=== PATIENT | female | born 1975 | race African-American/Black ===

== ENCOUNTER 2016-08-03 16:30 | Emergency (ER) | payer BC ==
--- NOTE | 2016-08-03 16:45 | ER Document Report ---
ED Medical Screen (RME) - General Stated Complaint: CHEST PAIN Notes: 41 yo female c/o anterior chest tightness x 1 week. + cough. + fever. "left arm feels funny". + hx/o HTN, + smoker no DM. *Pt was treated for pneumonia last month. *BP elevated 170/126. has not taken meds today. taking OTC cold meds TRAVEL OUTSIDE OF THE [place] IN LAST 30 DAYS: No - Related Data Allergies/Adverse Reactions: No Known Allergies Allergy (Verified 08/03/16 16:41) Past Medical History - Past Medical History Cardiac Medical History: Reports: Hx Hypertension Pulmonary Medical History: Reports: Hx Bronchitis Renal/ Medical History: Reports: Hx Ovarian Cysts - Immunizations Hx Diphtheria, Pertussis, Tetanus Vaccination: Yes Physical Exam - Vital signs Vitals: Temp Resp BP Pulse Ox 98.7 F 24 H 170/126 H 97 08/03/16 16:44 08/03/16 16:44 08/03/16 16:44 08/03/16 16:44 Course - Vital Signs Vital signs: Temp Pulse Resp BP Pulse Ox 98.7 F 24 H 170/126 H 97 08/03/16 16:44 08/03/16 16:44 08/03/16 16:44 08/03/16 16:44
[2016-08-03 17:39] LABS: HEMATOCRIT 40.4 % (36.0-47.0); HEMOGLOBIN 12.9 g/dL (12.0-15.5); HGB HCT DIFFERENCE -1.7; MEAN CORPUSCULAR HEMOGLOBIN 29.4 pg (27.0-33.4); MEAN CORPUSCULAR HGB CONC 31.9 g/dL (32.0-36.0); MEAN CORPUSCULAR VOLUME 92 fl (80-97); RED BLOOD COUNT 4.38 10^6/uL (3.72-5.28); RED CELL DISTRIBUTION WIDTH 15.1 % (11.5-14.0); WHITE BLOOD COUNT 3.9 10^3/uL (4.0-10.5)
[2016-08-03 17:56] LABS: ALANINE AMINOTRANSFERASE 23 U/L (9-52); ALKALINE PHOSPHATASE 78 U/L (38-126); ANION GAP 8 (5-19); ASPARTATE AMINO TRANSFERASE 19 U/L (14-36); BILIRUBIN,TOTAL 0.4 mg/dL (0.2-1.3); BLOOD UREA NITROGEN 8 mg/dL (7-20); CALCIUM 9.1 mg/dL (8.4-10.2); CARBON DIOXIDE 29 mmol/L (22-30); CHLORIDE 105 mmol/L (98-107); CREATINE KINASE 135 U/L (30-135); CREATININE RESULT 1.06 mg/dL (0.52-1.25); GLUCOSE 100 mg/dL (75-110); POTASSIUM 4.5 mmol/L (3.6-5.0); SODIUM 141.6 mmol/L (137-145)
[2016-08-03 18:09] LABS: CREATINE KINASE MB < 0.22 ng/mL (<4.55); TROPONIN I < 0.012 ng/mL
[2016-08-03 18:12] LABS: BAND NEUTROPHILS % (MANUAL) 1 % (3-5); BASOPHILS % (MANUAL) 0 % (0-2); EOSINOPHILS % (MANUAL) 1 % (0-6); LYMPHOCYTES % (MANUAL) 44 % (13-45); TOTAL CELLS COUNTED 100
[2016-08-03 18:14] LABS: ANISOCYTOSIS SLIGHT; OVALOCYTES SLIGHT; POIKILOCYTOSIS SLIGHT; TARGET CELLS SLIGHT
[2016-08-03] MEDS ORDERED: ALBUTEROL SULFATE 0.083% NEB 2.5 MG/3 ML AMPUL NEB ONE (21:41)
[2016-08-03] MEDS ORDERED: GUAIFENESIN/D-METHORPHAN (200-20 MG) SYRUP 10 ML PO ONE (21:41)
[2016-08-03] MEDS ORDERED: HYDRALAZINE HCL 25 MG TABLET PO ONE (21:41)
[2016-08-03] MEDS ORDERED: CYCLOBENZAPRINE HCL 10 MG TABLET PO ONE (21:41)
--- NOTE | 2016-08-03 21:43 | ER Document Report ---
ED General - General Chief Complaint: Chest Pain > 30 Stated Complaint: CHEST PAIN Mode of Arrival: Ambulatory Information source: Patient Notes: Patient is a 41-year-old female who presents to the ER today for 5 days of cough that is worsening with shortness of breath, wheezing, chest pain, ear pain bilaterally, sinus pressure. Patient states that the chest pain is worse after coughing. She also has a history of hypertension and has not taken her blood pressure medication today. She is a smoker but denies any history of COPD or asthma. Patient was diagnosed with pneumonia on June 27 and states that she did finish all of her antibiotics and did get better from that. She states that multiple people have been diagnosed with pneumonia at work here lately. TRAVEL OUTSIDE OF THE [place] IN LAST 30 DAYS: No - Related Data Allergies/Adverse Reactions: No Known Allergies Allergy (Verified 08/03/16 16:41) Past Medical History - General Information source: Patient - Social History Smoking Status: Current Every Day Smoker Chew tobacco use (# tins/day): No Frequency of alcohol use: None Drug Abuse: None Family History: Arthritis, DM, Hyperlipidemia, Hypertension, Malignancy Patient has suicidal ideation: No Patient has homicidal ideation: No - Past Medical History Cardiac Medical History: Reports: Hx Hypertension Pulmonary Medical History: Reports: Hx Bronchitis Renal/ Medical History: Reports: Hx Ovarian Cysts. Denies: Hx Peritoneal Dialysis - Immunizations Hx Diphtheria, Pertussis, Tetanus Vaccination: Yes Review of Systems - Review of Systems Constitutional: No symptoms reported EENT: See HPI Cardiovascular: No symptoms reported Respiratory: See HPI Gastrointestinal: No symptoms reported Genitourinary: No symptoms reported Female Genitourinary: No symptoms reported Musculoskeletal: See HPI Skin: No symptoms reported Hematologic/Lymphatic: No symptoms reported Neurological/Psychological: No symptoms reported Physical Exam - Vital signs Vitals: Temp Resp BP Pulse Ox 98.7 F 24 H 170/126 H 97 08/03/16 16:44 08/03/16 16:44 08/03/16 16:44 08/03/16 16:44 - Notes Notes: PHYSICAL EXAMINATION: GENERAL: Mildly ill-appearing, but in no acute distress. HEAD: Atraumatic, normocephalic. EYES: Pupils equal round and reactive to light, extraocular movements intact, sclera anicteric, conjunctiva are normal. ENT: ear canals without erythema or foreign body, TMs pearly zurita with good bony landmarks, nares with mucoid discharge, oropharynx erythematous without enlarged tonsils without exudates. Moist mucous membranes. NECK: Normal range of motion, supple without lymphadenopathy LUNGS: CTAB and equal. No wheezes rales or rhonchi. HEART/CHEST: tender to palpation over anterior lower ribs bilaterally, Regular rate and rhythm without murmurs ABDOMEN: Soft, no tenderness. No guarding, no rebound EXTREMITIES: Normal range of motion, no pitting edema. No cyanosis. NEUROLOGICAL: Cranial nerves grossly intact. Normal sensory/motor exams. PSYCH: Normal mood, normal affect. SKIN: Warm, Dry, normal turgor, no rashes or lesions noted Course - Re-evaluation Re-evalutation: 08/03/16 22:31 Chest x-ray is negative for any acute pathology. Patient feels better after cough medication, breathing treatment, muscle relaxer for her obvious intercostal rib pain from coughing. Patient will be sent home on antibiotic as she has had 5 days of worsening symptoms and recent history of pneumonia. - Vital Signs Vital signs: Temp Pulse Resp BP Pulse Ox 98.7 F 24 H 170/126 H 97 08/03/16 16:44 08/03/16 16:44 08/03/16 16:44 08/03/16 16:44 - Laboratory Result Diagrams: 08/03/16 17:10 08/03/16 17:10 Laboratory results interpreted by me: 08/03/16 08/03/16 17:10 17:10 WBC 3.9 L MCHC 31.9 L RDW 15.1 H Seg Neuts % (Manual) 37 L Band Neutrophils % 1 L Monocytes % (Manual) 15 H Abs Neuts (Manual) 1.5 L Est GFR (Non-Af Amer) 57 L Discharge - Discharge Clinical Impression: Rib pain, Bronchitis HTN (hypertension) Qualifiers: Hypertension type: essential hypertension Qualified Code(s): I10 - Essential ( primary) hypertension Sinusitis Qualifiers: Sinusitis location: unspecified location Chronicity: acute Recurrence: non- recurrent Qualified Code(s): J01.90 - Acute sinusitis, unspecified Condition: Stable Disposition: HOME, SELF-CARE Instructions: Chest Wall Pain ([facility]) Additional Instructions: Return immediately for any new or worsening symptoms. Follow up with primary care provider, call tomorrow to make followup appointment. Prescriptions: Hydrocodone Bit/Homatropine [Hycodan Syrup 5-1.5 mg/5 ml Ud Cup] 5 ml PO Q4HP PRN #120 ml PRN Reason: Azithromycin [Zithromax 250 mg Tablet] 250 mg PO ASDIR PRN #6 tablet PRN Reason: Fluticasone Propionate [Flonase Nasal [place] 50 Mcg/[place] 16 gm] 2 sprays NASL Q12 #1 inhaler Forms: Elevated Blood Pressure, Smoking Cessation Education, Return to Work
[2016-08-03] MEDS ORDERED: AZITHROMYCIN 250 MG TABLET PO ONE (22:36)
[2016-08-03 23:32] VITALS: BP 170/126
--- NOTE | 2016-08-05 12:46 | EKG REPORT ---
SEVERITY:- NORMAL ECG - SINUS RHYTHM : Confirmed by: Dahlia Thacker MD 05-Aug-2016 12:46:18
== END 2016-08-03 23:32 | disposition home or self-care (01) ==
LOC: ER 16:30
DX: J40 Bronchitis, not specified as acute or chronic (principal); J01.90 Acute sinusitis, unspecified; R07.82 Intercostal pain; R05 Cough; R06.02 Shortness of breath; R06.2 Wheezing; H92.09 Otalgia, unspecified ear; J34.89 Other specified disorders of nose and nasal sinuses; I10 Essential (primary) hypertension; F17.200 Nicotine dependence, unspecified, uncomplicated; Z79.899 Other long term (current) drug therapy; Z87.01 Personal history of pneumonia (recurrent)
CPT/HCPCS: 93005; 94640; 99285; 36415; 82553; 82550; 85025; 80053; 84484; 71020; 93010; J3490

== ENCOUNTER 2016-09-06 15:06 | Emergency (ER) | payer BC ==
--- NOTE | 2016-09-06 15:15 | ER Document Report ---
ED Medical Screen (RME) - General Stated Complaint: LEFT ARM PAIN Time seen by provider: 15:13 Mode of Arrival: Ambulatory Information source: Patient Notes: Patient complains of left wrist pain for the last 4 days, pain radiating up the entire left arm. Denies recent injury, but states she broke the wrist about 8 years ago. Complains of pain and swelling to the left wrist area. I have greeted and performed a rapid initial assessment of this patient. A comprehensive ED assessment and evaluation of the patient, analysis of test results and completion of the medical decision making process will be conducted by additional ED providers. TRAVEL OUTSIDE OF THE [place] IN LAST 30 DAYS: No - Related Data Allergies/Adverse Reactions: No Known Allergies Allergy (Verified 09/06/16 15:11) Past Medical History - Past Medical History Cardiac Medical History: Reports: Hx Hypertension Pulmonary Medical History: Reports: Hx Bronchitis Renal/ Medical History: Reports: Hx Ovarian Cysts. Denies: Hx Peritoneal Dialysis - Immunizations Hx Diphtheria, Pertussis, Tetanus Vaccination: Yes Physical Exam - Vital signs Vitals: Temp Pulse Resp BP Pulse Ox 97.6 F 65 20 138/90 H 99 09/06/16 15:10 09/06/16 15:10 09/06/16 15:10 09/06/16 15:10 09/06/16 15:10 - Extremities Wrist: Tender, Other - mild edema to left wrist, pain with ROM and palpation.. No: Ecchymosis Course - Vital Signs Vital signs: Temp Pulse Resp BP Pulse Ox 97.6 F 65 20 138/90 H 99 09/06/16 15:10 09/06/16 15:10 09/06/16 15:10 09/06/16 15:10 09/06/16 15:10
--- NOTE | 2016-09-06 17:35 | ER Document Report ---
ED General - General Chief Complaint: Arm Pain Stated Complaint: LEFT ARM PAIN Mode of Arrival: Ambulatory Information source: Patient Notes: Patient is a 41-year-old -[place] female complaining of left thumb pain and swelling for the past 5 days. She denies any injury but states approximately week ago she was helping lift her mother off the floor who had fallen. She has previous history of fracture to the same wrist and is concerned for the same. 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 She has tried ibuprofen at home with no relief. She denies any numbness, tingling, bruising, warmth, redness or deformity to area. TRAVEL OUTSIDE OF THE [place] IN LAST 30 DAYS: No - Related Data Allergies/Adverse Reactions: No Known Allergies Allergy (Verified 09/06/16 15:11) Past Medical History - General Information source: Patient - Social History Smoking Status: Current Every Day Smoker Chew tobacco use (# tins/day): No Frequency of alcohol use: Occasional Drug Abuse: None Family History: Arthritis, DM, Hyperlipidemia, Hypertension, Malignancy Patient has suicidal ideation: No Patient has homicidal ideation: No - Past Medical History Cardiac Medical History: Reports: Hx Hypertension Pulmonary Medical History: Reports: Hx Bronchitis Renal/ Medical History: Reports: Hx Ovarian Cysts. Denies: Hx Peritoneal Dialysis - Immunizations Hx Diphtheria, Pertussis, Tetanus Vaccination: Yes Review of Systems - Review of Systems Constitutional: No symptoms reported EENT: No symptoms reported Cardiovascular: No symptoms reported Respiratory: No symptoms reported Gastrointestinal: No symptoms reported Genitourinary: No symptoms reported Female Genitourinary: No symptoms reported Musculoskeletal: See HPI Skin: No symptoms reported Hematologic/Lymphatic: No symptoms reported Neurological/Psychological: No symptoms reported Physical Exam - Vital signs Vitals: Temp Pulse Resp BP Pulse Ox 97.6 F 65 20 138/90 H 99 09/06/16 15:10 09/06/16 15:10 09/06/16 15:10 09/06/16 15:10 09/06/16 15:10 Interpretation: Normal, Hypertensive - Notes Notes: PHYSICAL EXAM: CONSTITUTIONAL: Alert and oriented, well-appearing and in no acute distress. Appears comfortable lying in exam bed. HENT: Normocephalic, atraumatic. Moist mucous membranes. EYES: Pupils equal round and reactive to light, EOM intact. Sclera anicteric, conjunctiva are normal. No entrapment. NECK: supple without lymphadenopathy. ROM intact. HEART: Regular rate and rhythm without murmurs. LUNGS: CTAB and equal. No wheezes, rales or rhonchi. EXTREMITIES: left thumb/wrist - tender to palpation along radial styloid process of left wrist with associated localized edema to area. Pain worse with active and passive ROM. Positive Finklestein maneuver. Neurovascular intact. No pitting edema. No cyanosis. Cap Refill <3 seconds. NEURO: Cranial nerves grossly intact. Normal sensory/motor exams. PSYCH: Normal mood, normal affect. SKIN: Warm and dry. Normal turgor. No rashes or lesions noted. Course - Re-evaluation Re-evalutation: 09/06/16 17:34 Patient seen and examined. Positive Leo maneuver to left wrist/thumb. No evidence of compartment syndrome or deformity. X-ray reviewed and negative for acute bony abnormality. Discussed results with patient. Applied thumb spica splint and give script for anti-inflammatories/narcotic pain medication. Discussed following up with orthopedics and wearing thumb spica splint until evaluated by orthopedic. Patient gave verbal agreement with plan. Discharged home in stable condition. - Vital Signs Vital signs: Temp Pulse Resp BP Pulse Ox 97.6 F 65 20 138/90 H 99 09/06/16 15:10 09/06/16 15:10 09/06/16 15:10 09/06/16 15:10 09/06/16 15:10 - Diagnostic Test Radiology reviewed: Image reviewed, Reports reviewed Radiology results interpreted by me: 09/06/16 17:36 xray negative for acute bony abnormality. Procedures - Immobilization Left Wrist Pre-Proc Neuro Vasc Exam: Normal Immobilizer type: Thumb spica Performed by: PCT Post-Proc Neuro Vasc Exam: Normal Alignment checked and good: Yes Discharge - Discharge Clinical Impression: De Quervain's disease (tenosynovitis) Condition: Stable Disposition: HOME, SELF-CARE Additional Instructions: Tendonitis The pain you are having is due to tendonitis -- an inflammation around a muscle tendon. It's usually caused by overuse or repeated minor injuries ( strains) of the tendon. Tendonitis can take two to four weeks to heal. In fact, you may actually worsen for a few days despite treatment. Tendonitis is usually treated with rest, local heat, and antiinflammatory medication. Sometimes cold packs are recommended if the tendonitis has just started. If the pain is severe or prolonged, cortisone injections may be required. Call the doctor if pain or swelling become severe, if new discoloration or redness appears, or if numbness is noted. Splint Precautions A splint has been placed. This will protect the area while healing begins. Your problem does NOT normally require a cast. It MUST, however, be held still! Keep the splint on ALL THE TIME until instructed to remove it by the doctor. As you begin to use the area, be careful. You shouldn't do anything which causes discomfort -- you may disturb the injury even with the splint in place. After the initial period of rest and elevation, if splint does not prevent pain when you move, come back. You may require placement of a different splint , or a cast. If there is unexpected severe pain, or numbness, discoloration, or swelling beyond the splint, you should return at once. If you feel that the splint has broken or become loose, come back. Oral Narcotic Medication You have been given a prescription for pain control. This medication is a narcotic. It's best taken with food, as nausea can result if taken on an empty stomach. Don't operate machinery or drive within six hours of taking this medication. Do not combine this medicine with alcohol, or with any medication which can cause sedation (such as cold tablets or sleeping pills) unless you get permission from the physician. Narcotics tend to cause constipation. If possible, drink plenty of fluids and eat a diet high in fiber and fruits. Anti-Inflammatory Medication You have received a prescription for an antiinflammatory agent. This is an excellent, safe drug for pain control. In addition, it has potent antiinflammatory effects which are beneficial, especially in the treatment of injuries, arthritis, or tendonitis. It's best to take this medicine with food. Persons with ulcer disease or allergy to aspirin should notify their physician of this before taking this drug. Take the medication exactly as prescribed. Don't take additional doses unless instructed to do so by your doctor. If you develop wheezing, shortness of breath, hives, faintness, stomach pain, vomiting, or dark black stools, return for re-evaluation at once. Follow-Up Care Although no definite follow-up visit has been scheduled for you, you should return if there is unexpected worsening or a significant change in your symptoms. Prescriptions: Tramadol HCl [Ultram] 50 mg PO Q8HP PRN #10 tablet PRN Reason: Meloxicam [Mobic 15 mg Tablet] 15 mg PO DAILY #30 tablet Forms: Elevated Blood Pressure, Return to Work Referrals: CASPER LINDSEY MD [ACTIVE STAFF] - Follow up in 1 week (Call to schedule follow-up appointment)
[2016-09-06] MEDS ORDERED: TRAMADOL HCL 50 MG TABLET PO ONE (17:36)
[2016-09-06 18:03] VITALS: BP 134/76
== END 2016-09-06 18:05 | disposition home or self-care (01) ==
LOC: ER 15:06
PROC: 2W3DX1Z Immobilization of Left Lower Arm using Splint (ICD-10-PCS; principal; 2016-09-06)
DX: M65.4 Radial styloid tenosynovitis [de Quervain] (principal); F17.200 Nicotine dependence, unspecified, uncomplicated; I10 Essential (primary) hypertension; Z87.81 Personal history of (healed) traumatic fracture
CPT/HCPCS: 99283

== ENCOUNTER 2016-10-11 12:58 | Emergency (ER) | payer BC ==
--- NOTE | 2016-10-11 13:10 | ER Document Report ---
ED Medical Screen (RME) - General Mode of Arrival: Ambulatory Information source: Patient TRAVEL OUTSIDE OF THE [place] IN LAST 30 DAYS: No - HPI Patient complains to provider of: Headache and hypertension Onset: Other - see notes above Associated Symptoms: Other - see notes above <JYOTHI WEATHERS - Last Filed: 10/11/16 13:16> <NURA TOBAR - Last Filed: 10/11/16 15:59> - General Chief Complaint: High Blood Pressure Stated Complaint: HEADACHE Notes: 41 year old female with history of hypertension (medicated with Lisinopril) presents to the ED after being told by [facility] to come to the ED after having a high blood pressure reading earlier this afternoon. Patient states that she originally went to [facility] for a headache that she has been having for the past 3 weeks. Patient denies a fever. Patient took Lisinopril earlier today. (JYOTHI WEATHERS) - Related Data Allergies/Adverse Reactions: No Known Allergies Allergy (Verified 10/11/16 13:01) Past Medical History - General Information source: Patient - Past Medical History Cardiac Medical History: Reports: Hx Hypertension Pulmonary Medical History: Reports: Hx Bronchitis Renal/ Medical History: Reports: Hx Ovarian Cysts. Denies: Hx Peritoneal Dialysis - Immunizations Hx Diphtheria, Pertussis, Tetanus Vaccination: Yes <JYOTHI WEATHERS - Last Filed: 10/11/16 13:16> Review of Systems - Review of Systems Constitutional: No symptoms reported EENT: No symptoms reported Cardiovascular: See HPI, Other - hypertension Respiratory: No symptoms reported Gastrointestinal: No symptoms reported Genitourinary: No symptoms reported Female Genitourinary: No symptoms reported Musculoskeletal: No symptoms reported Skin: No symptoms reported Hematologic/Lymphatic: No symptoms reported Neurological/Psychological: See HPI, Headaches -: Yes All other systems reviewed and negative <JYOTHI WEATHERS - Last Filed: 10/11/16 13:16> Physical Exam - Vital signs Interpretation: Hypertensive - General General appearance: Alert, Other - appears uncomfortable In distress: None - HEENT Nasal: Other - nasal congestion - Respiratory Respiratory status: No respiratory distress <JYOTHI WEATHERS - Last Filed: 10/11/16 13:16> <NURA TOBAR - Last Filed: 10/11/16 15:59> - Vital signs Vitals: Temp Pulse Resp BP Pulse Ox 99.5 F 93 20 182/114 H 98 10/11/16 13:05 10/11/16 13:05 10/11/16 13:05 10/11/16 13:05 10/11/16 13:05 Course <JYOTHI WEATHERS - Last Filed: 10/11/16 13:16> - Laboratory Result Diagrams: 10/11/16 13:50 10/11/16 13:50 <NURA TOBAR - Last Filed: 10/11/16 15:59> - Re-evaluation Re-evalutation: 10/11/16 15:59 I personally performed the services described in the documentation, reviewed and edited the documentation which was dictated to the scribe in my presence, and it accurately records my words and actions. (NURA TOBAR) - Vital Signs Vital signs: Temp Pulse Resp BP Pulse Ox 99.5 F 93 20 182/114 H 98 10/11/16 13:05 10/11/16 13:05 10/11/16 13:05 10/11/16 13:05 10/11/16 13:05 - Laboratory Laboratory results interpreted by me: 10/11/16 13:50 RDW 14.8 H Doctor's Discharge <JYOTHI WEATHERS - Last Filed: 10/11/16 13:16> <NURA TOBAR - Last Filed: 10/11/16 15:59> - Discharge Clinical Impression: Headache, Hypertension Condition: Stable Disposition: HOME, SELF-CARE Instructions: High Blood Pressure ([facility]) Additional Instructions: You must follow-up with your physician regarding your high blood pressure. You must take medications as prescribed Follow up with your physician tomorrow for further care or return to the ED IMMEDIATELY if symptoms worsen or new concerns occur Scribe Documentation - Scribe Written by Nany:: Nany Austin, 10/11/2016 1332 acting as scribe for :: Juan Daniel <JYOTHI WEATHERS - Last Filed: 10/11/16 13:16>
[2016-10-11] MEDS ORDERED: DIPHENHYDRAMINE HCL 50 MG/ML VIAL IV ONE (13:11)
[2016-10-11] MEDS ORDERED: PROCHLORPERAZINE EDISYLATE INJ 10 MG/2 ML VIAL IV ONE (13:11)
[2016-10-11] MEDS ORDERED: ONDANSETRON HCL INJ/PF 4 MG/2 ML SDV IV ONE (13:11)
[2016-10-11] MEDS ORDERED: LORAZEPAM INJ 2 MG/1 ML VIAL IV ONE (13:47)
--- NOTE | 2016-10-11 13:50 | ER Document Report ---
ED General - General Chief Complaint: High Blood Pressure Stated Complaint: HEADACHE Mode of Arrival: Ambulatory Information source: Patient Notes: 41-year-old female history of hypertension who is on lisinopril and another blood pressure medication that she is yet to start presents with complaints of high blood pressure and headache. Patient was noted to have a blood pressure of 210/120 prior to arrival. Patient admits headache with mild nausea denies any fevers or chills denies any neurological deficits. Patient also notes that she is extremely anxious and tearful because a friend had . Patient admits she has not been taking her blood pressure medication as prescribed. She didn't take her lisinopril earlier today. TRAVEL OUTSIDE OF THE [place] IN LAST 30 DAYS: No - HPI Onset: This morning Onset/Duration: Gradual Quality of pain: Achy Severity: Mild Pain Level: 2 Associated symptoms: Headache Exacerbated by: Denies Relieved by: Denies Similar symptoms previously: Yes Recently seen / treated by doctor: Yes - Related Data Allergies/Adverse Reactions: No Known Allergies Allergy (Verified 10/11/16 13:01) Past Medical History - General Information source: Patient - Social History Smoking Status: Never Smoker Cigarette use (# per day): No Chew tobacco use (# tins/day): No Smoking Education Provided: No Family History: Arthritis, DM, Hyperlipidemia, Hypertension, Malignancy Patient has suicidal ideation: No Patient has homicidal ideation: No - Past Medical History Cardiac Medical History: Reports: Hx Hypertension Pulmonary Medical History: Reports: Hx Bronchitis Renal/ Medical History: Reports: Hx Ovarian Cysts. Denies: Hx Peritoneal Dialysis - Immunizations Hx Diphtheria, Pertussis, Tetanus Vaccination: Yes Review of Systems - Review of Systems Notes: REVIEW OF SYSTEMS: CONSTITUTIONAL : Denies fever, chills, or sweats. Denies recent illness. EENT: Denies eye, ear, throat, or mouth pain or symptoms. Denies nasal or sinus congestion or discharge. Denies throat, tongue, or mouth swelling or difficulty swallowing. CARDIOVASCULAR: Denies chest pain. Denies palpitations or racing or irregular heart beat. Denies ankle edema. RESPIRATORY: Denies cough, cold, or chest congestion. Denies shortness of breath, difficulty breathing, or wheezing. GASTROINTESTINAL: Denies abdominal pain or distention. Denies nausea, vomiting , or diarrhea. Denies blood in vomitus, stools, or per rectum. Denies black, tarry stools. Denies constipation. GENITOURINARY: Denies difficulty urinating, painful urination, burning, frequency, blood in urine, or discharge. FEMALE GENITOURINARY: Denies vaginal bleeding, heavy or abnormal periods, irregular periods. Denies vaginal discharge or odor. MUSCULOSKELETAL: Denies back or neck pain or stiffness. Denies joint pain or swelling. SKIN: Denies rash, lesions or sores. HEMATOLOGIC : Denies easy bruising or bleeding. LYMPHATIC: Denies swollen, enlarged glands. NEUROLOGICAL: Admits to headache PSYCHIATRIC: Admits to anxiety stress ALL OTHER SYSTEMS REVIEWED AND NEGATIVE. Dictation was performed using [employer] voice recognition software PHYSICAL EXAMINATION: GENERAL: Well-appearing, well-nourished and in no acute distress. HEAD: Atraumatic, normocephalic. EYES: Pupils equal round and reactive to light, extraocular movements intact, conjunctiva are normal. ENT: Nares patent, oropharynx clear without exudates. Moist mucous membranes. NECK: Normal range of motion, supple without lymphadenopathy LUNGS: Breath sounds clear to auscultation bilaterally and equal. No wheezes rales or rhonchi. HEART: Regular rate and rhythm without murmurs ABDOMEN: Soft, nontender, nondistended abdomen. No guarding, no rebound. No masses appreciated. Female : deferred Musculoskeletal: Normal range of motion, no pitting or edema. No cyanosis. NEUROLOGICAL: Cranial nerves grossly intact. Normal speech, normal gait. Normal sensory, motor exams PSYCH: Patient is tearful admits to mild depression SKIN: Warm, Dry, normal turgor, no rashes or lesions noted. Physical Exam - Vital signs Vitals: Temp Pulse Resp BP Pulse Ox 99.5 F 93 20 182/114 H 98 10/11/16 13:05 10/11/16 13:05 10/11/16 13:05 10/11/16 13:05 10/11/16 13:05 Course - Re-evaluation Re-evalutation: 10/11/16 13:49 Physical examination notes an obese 41-year-old female who does not take her blood pressure medication as prescribed. Patient was noted to be hypertensive on arrival but lower than initial presentation. She will be placed on monitor treated for her headache imaging is pending at this time 10/11/16 14:46 On reevaluation patient's blood pressure is 160/110, she is sleeping comfortably in no distress, I will rule out she states her headache has resolved. Lab work imaging otherwise negative I believe patient stable for discharge patient has been instructed that she must take her blood pressure medication as prescribed After performing a Medical Screening Examination, I estimate there is LOW risk for ACUTE GLAUCOMA, TEMPORAL ARTERITIS, MENINGITIS, INCRANIAL HEMORRHAGE, or ISCHEMIC STROKE thus I consider the discharge disposition reasonable. The patient and I have discussed the diagnosis and risks, and we agree with discharging home with close follow-up with the understanding that symptoms and presentations can change. We also discussed returning to the Emergency Department immediately if new or worsening symptoms occur. We have discussed the symptoms which are most concerning (e.g., changing or worsening symptoms, new numbness or weakness, vomiting, fever) that necessitate immediate return. - Vital Signs Vital signs: Temp Pulse Resp BP Pulse Ox 99.5 F 93 20 182/114 H 98 10/11/16 13:05 10/11/16 13:05 10/11/16 13:05 10/11/16 13:05 10/11/16 13:05 - Laboratory Result Diagrams: 10/11/16 13:50 10/11/16 13:50 Laboratory results interpreted by me: 10/11/16 13:50 RDW 14.8 H - Diagnostic Test Radiology reviewed: Image reviewed, Reports reviewed - EKG Interpretation by Nv EKG shows normal: Sinus rhythm, [place], Intervals, QRS Complexes Discharge - Discharge Clinical Impression: Headache Qualifiers: Headache type: unspecified Headache chronicity pattern: acute headache Intractability: not intractable Qualified Code(s): R51 - Headache Hypertension Qualifiers: Hypertension type: essential hypertension Qualified Code(s): I10 - Essential ( primary) hypertension Condition: Stable Disposition: HOME, SELF-CARE Instructions: High Blood Pressure ([facility]) Additional Instructions: You must follow-up with your physician regarding your high blood pressure. You must take medications as prescribed Follow up with your physician tomorrow for further care or return to the ED IMMEDIATELY if symptoms worsen or new concerns occur
[2016-10-11 14:17] LABS: ABSOLUTE LYMPHOCYTES (AUTO) 2.1 10^3/uL (0.5-4.7); ABSOLUTE MONOCYTES (AUTO) 0.6 10^3/uL (0.1-1.4); ABSOLUTE NEUT (AUTO) 3.4 10^3/uL (1.7-8.2); BASOPHILS % (AUTO) 0.7 % (0-2); EOSINOPHILS % (AUTO) 0.4 % (0-6); HEMATOCRIT 38.1 % (36.0-47.0); HEMOGLOBIN 12.8 g/dL (12.0-15.5); HGB HCT DIFFERENCE 0.3; LYMPHOCYTES % (AUTO) 33.8 % (13-45); MEAN CORPUSCULAR HGB CONC 33.6 g/dL (32.0-36.0); MEAN CORPUSCULAR VOLUME 89 fl (80-97); MONOCYTES % (AUTO) 9.2 % (3-13); RED BLOOD COUNT 4.28 10^6/uL (3.72-5.28); RED CELL DISTRIBUTION WIDTH 14.8 % (11.5-14.0); SEGMENTED NEUTROPHILS % (AUTO) 55.9 % (42-78); WHITE BLOOD COUNT 6.1 10^3/uL (4.0-10.5)
[2016-10-11 14:36] LABS: ALANINE AMINOTRANSFERASE 25 U/L (9-52); ALBUMIN 4.2 g/dL (3.5-5.0); ALKALINE PHOSPHATASE 74 U/L (38-126); ANION GAP 10 (5-19); ASPARTATE AMINO TRANSFERASE 20 U/L (14-36); BILIRUBIN,DIRECT 0.1 mg/dL (0.0-0.4); BILIRUBIN,TOTAL 0.4 mg/dL (0.2-1.3); BLOOD UREA NITROGEN 8 mg/dL (7-20); CALCIUM 9.4 mg/dL (8.4-10.2); CARBON DIOXIDE 25 mmol/L (22-30); CHLORIDE 106 mmol/L (98-107); CREATINE KINASE 123 U/L (30-135); CREATININE RESULT 0.89 mg/dL (0.52-1.25); GLUCOSE 82 mg/dL (75-110); POTASSIUM 4.3 mmol/L (3.6-5.0); SODIUM 141.2 mmol/L (137-145); TOTAL PROTEIN 7.3 g/dL (6.3-8.2)
[2016-10-11 17:08] VITALS: BP 162/110
--- NOTE | 2016-10-13 15:41 | EKG REPORT ---
SEVERITY:- NORMAL ECG - SINUS RHYTHM : Confirmed by: Dahlia Thacker MD 13-Oct-2016 15:41:14
== END 2016-10-11 16:40 | disposition home or self-care (01) ==
LOC: ER 12:58
DX: R51 Headache (principal); I10 Essential (primary) hypertension; R11.0 Nausea; F41.9 Anxiety disorder, unspecified
CPT/HCPCS: 93005; 99284; 96374; 96375; 36415; 82553; 82550; 85025; 85610; 80053; 70450; 93010; J1200; J2060; J0780; J2405

== ENCOUNTER 2017-06-16 03:40 | Emergency (ER) | payer BC ==
[2017-06-16] MEDS ORDERED: KETOROLAC TROMETHAMINE 60 MG/2 ML SDV IM ONE (04:24)
[2017-06-16] MEDS ORDERED: BUPIVACAINE HCL 0.5 % INJ/PF 30 ML SDV INJ ONE (04:54)
--- NOTE | 2017-06-16 05:04 | RADIOLOGY REPORT (SQ) ---
EXAM DESCRIPTION: WRIST LEFT 3 VIEWS CLINICAL HISTORY: 41 years, Female, pain COMPARISON: 09/06/2016 NUMBER OF VIEWS: Three TECHNIQUE: Frontal lateral oblique LIMITATIONS: None. FINDINGS: Comminuted, impacted intra-articular fracture of the distal left radius with up to 0.8 cm posterior displacement. Fracture of the ulnar styloid base. 0.5 cm distraction of the scapholunate joint space consistent with scapholunate ligamentous injury. No evidence of healing. New compared with prior exam from August 2016. IMPRESSION: Comminuted impacted fracture of the left distal radius and ulnar styloid base. Scapholunate separation. 2010 [employer] All Rights Reserved
--- NOTE | 2017-06-16 05:05 | RADIOLOGY REPORT (SQ) ---
EXAM DESCRIPTION: HIP LEFT AP/LATERAL CLINICAL HISTORY: 41 years, Female, pain COMPARISON: None. NUMBER OF VIEWS: Two. TECHNIQUE: Frontal and frog lateral. LIMITATIONS: None. FINDINGS: Bones, joints, and soft tissues appear intact. IMPRESSION: Intact left hip. 2011 [employer]- All Rights Reserved
--- NOTE | 2017-06-16 05:07 | RADIOLOGY REPORT (SQ) ---
EXAM DESCRIPTION: TIBIA FIBULA LEFT CLINICAL HISTORY: 41 years, Female, pain COMPARISON: None. NUMBER OF VIEWS: Two, four images. TECHNIQUE: Frontal and lateral. LIMITATIONS: None. FINDINGS: Bones, joints, and soft tissues appear intact. IMPRESSION: Intact left lower leg. 2011 [employer]- All Rights Reserved
--- NOTE | 2017-06-16 05:54 | ER Document Report ---
ED General - General Chief Complaint: Fall Stated Complaint: FALL,ARM/LEG PAIN Time Seen by Provider: 06/16/17 04:17 TRAVEL OUTSIDE OF THE U.S. IN LAST 30 DAYS: No - HPI Patient complains to provider of: Fall left leg left arm injury Notes: Patient coming in for evaluation of the left leg left arm injury. Patient states that she was drinking when she fell landing on her side. Patient states pain in the left wrist. Patient also states pain and her left knee. Denies any loss of consciousness. Patient states that she was drinking alcohol unknown when the last time she had anything to drink. Patient does smell of alcohol patient looks to be in no obvious distress. Patient does have an obvious deformity to the left wrist - Related Data Allergies/Adverse Reactions: No Known Allergies Allergy (Verified 06/16/17 03:45) Past Medical History - Social History Smoking Status: Former Smoker Frequency of alcohol use: Social Family History: Arthritis, DM, Hyperlipidemia, Hypertension, Malignancy Patient has suicidal ideation: No Patient has homicidal ideation: No - Past Medical History Cardiac Medical History: Reports: Hx Hypertension Pulmonary Medical History: Reports: Hx Bronchitis Renal/ Medical History: Reports: Hx Ovarian Cysts. Denies: Hx Peritoneal Dialysis - Immunizations Hx Diphtheria, Pertussis, Tetanus Vaccination: Yes Review of Systems - Review of Systems Constitutional: No symptoms reported EENT: No symptoms reported Cardiovascular: No symptoms reported Respiratory: No symptoms reported Gastrointestinal: No symptoms reported Genitourinary: No symptoms reported Female Genitourinary: No symptoms reported Musculoskeletal: Other - Left arm left knee pain Skin: No symptoms reported Hematologic/Lymphatic: No symptoms reported Neurological/Psychological: No symptoms reported Physical Exam - Vital signs Vitals: Temp Pulse Resp BP Pulse Ox 97.7 F 77 18 107/85 99 06/16/17 03:45 06/16/17 03:45 06/16/17 03:45 06/16/17 03:45 06/16/17 03:45 Interpretation: Normal - General General appearance: Appears well, Alert - HEENT Head: Normocephalic, Atraumatic Eyes: Normal Pupils: PERRL - Respiratory Respiratory status: No respiratory distress Chest status: Nontender Breath sounds: Normal Chest palpation: Normal - Cardiovascular Rhythm: Regular Heart sounds: Normal auscultation Murmur: No - Abdominal Inspection: Normal Distension: No distension Bowel sounds: Normal Tenderness: Nontender Organomegaly: No organomegaly - Back Back: Normal, Nontender - Extremities General upper extremity: Nontender, Normal color, Normal ROM, Normal temperature. No: Normal inspection - Swelling slight deformity to the left wrist. General lower extremity: Normal inspection, Nontender, Normal color, Normal ROM , Normal temperature, Normal weight bearing, Other - Left knee was examined patient is able to bend left knee up at 90. There is no laxity or pain listed on valgus varus anterior posterior drawer testing.. No: Ly's sign - Neurological Neuro grossly intact: Yes Cognition: Normal Orientation: AAOx4 [place] Coma Scale Eye Opening: Spontaneous [place] Coma Scale Verbal: Oriented [place] Coma Scale Motor: Obeys Commands [place]onna Coma Scale Total: 15 Speech: Normal Motor strength normal: LUE, RUE, LLE, RLE Sensory: Normal - Psychological Associated symptoms: Normal affect, Normal mood - Skin Skin Temperature: Warm Skin Moisture: Dry Skin Color: Normal Course - Re-evaluation Re-evalutation: 06/16/17 06:18 X-ray reveals a left wrist fracture. Patient was placed in a sugar tong splint. No other fracture seen on x-rays. Patient more likely has a knee sprain was placed in Allan bandage. Due to the patient smelling of alcohol and admitting to recent alcohol use no narcotics were given to the patient I did perform a hematoma block using 0.5 days Marcaine. The area was cleaned with ChloraPrep injected approximately 4 cc of Marcaine into left wrist. 06/16/17 06:19 Patient was given orthopedic follow-up information. - Vital Signs Vital signs: Temp Pulse Resp BP Pulse Ox 97.7 F 77 18 107/85 99 06/16/17 03:45 06/16/17 03:45 06/16/17 03:45 06/16/17 03:45 06/16/17 03:45 Procedures - Immobilization Left Wrist Immobilizer type: Sugar tong Performed by: PCT Post-Proc Neuro Vasc Exam: Normal Alignment checked and good: Yes Discharge - Discharge Clinical Impression: Wrist fracture, left Qualifiers: Encounter type: initial encounter Fracture type: closed Qualified Code(s): S62.102A - Fracture of unspecified carpal bone, left wrist, initial encounter for closed fracture Knee sprain Qualifiers: Encounter type: initial encounter Involved ligament of knee: unspecified ligament Laterality: left Qualified Code(s): S83.92XA - Sprain of unspecified site of left knee, initial encounter Condition: Good Disposition: HOME, SELF-CARE Instructions: Fractured Radius ([facility]), Ice & Elevation ([facility]), Suspected Internal Knee Injury ([facility]), Oral Narcotic Medication ([facility]), Sprained Knee ([facility]) Additional Instructions: Your x-ray shows she fractured her left wrist. Please leave the splint in place until you follow-up with orthopedic physician. I recommend calling the orthopedic office this morning to schedule a follow-up appointment. Please take the pain medication as prescribed do not drink any alcohol when taking the pain medication. He may also take Tylenol Motrin for pain. Your x-rays of your hip and of your lower leg did not show any signs of fracture. Your knee pain is more likely from a sprain. You may use the Allan wrap as needed for support. Ice and elevate your knee. Return to the ER for any worsening symptoms. Prescriptions: Hydrocodone Bit/Acetaminophen [Hydrocodon-Acetaminophen 5-325] 1 each PO Q6 #35 tablet Referrals: DENISE HOLDER MD [ACTIVE STAFF] - Follow up as needed (Call today for a follow- up appointment.)
[2017-06-16 06:35] VITALS: BP 148/89
== END 2017-06-16 06:30 | disposition home or self-care (01) ==
LOC: ER 03:40
PROC: 2W3DX1Z Immobilization of Left Lower Arm using Splint (ICD-10-PCS; principal; 2017-06-16)
DX: S62.102A Fracture of unspecified carpal bone, left wrist, initial encounter for closed fracture (principal); S83.92XA Sprain of unspecified site of left knee, initial encounter; W19.XXXA Unspecified fall, initial encounter; I10 Essential (primary) hypertension; Z87.891 Personal history of nicotine dependence
CPT/HCPCS: 99283; 73502; 73590; 73110; 29125; J1885

== ENCOUNTER 2017-06-20 14:00 | Day surgery (SDC) | payer BC ==
[~2017-06-20 14:00] MED LIST: DEXAMETHASONE SOD PHOSPHATE INJ 4 MG/1 ML VIAL ONE; ONDANSETRON HCL INJ/PF 4 MG/2 ML SDV ONE; PHENYLEPHRINE HCL INJ/PF 10 MG/1 ML SDV ONE; SUCCINYLCHOLINE CHLORIDE INJ 200 MG/10 ML VIAL ONE
[2017-06-20] MEDS ORDERED: CEFAZOLIN 2 GM/D5W RTU 2 GM/50 ML RTUPB IV PRN (14:32)
[2017-06-20 14:47] LABS: ABSOLUTE EOSINOPHILS # (AUTO) 0.1 10^3/uL (0.0-0.6); ABSOLUTE LYMPHOCYTES (AUTO) 1.9 10^3/uL (0.5-4.7); ABSOLUTE MONOCYTES (AUTO) 0.4 10^3/uL (0.1-1.4); ABSOLUTE NEUT (AUTO) 2.4 10^3/uL (1.7-8.2); BASOPHILS % (AUTO) 0.9 % (0-2); EOSINOPHILS % (AUTO) 1.7 % (0-6); HEMATOCRIT 39.2 % (36.0-47.0); HEMOGLOBIN 13.3 g/dL (12.0-15.5); HGB HCT DIFFERENCE 0.7; LYMPHOCYTES % (AUTO) 38.9 % (13-45); MEAN CORPUSCULAR HEMOGLOBIN 30.8 pg (27.0-33.4); MEAN CORPUSCULAR VOLUME 91 fl (80-97); MONOCYTES % (AUTO) 8.6 % (3-13); RED BLOOD COUNT 4.31 10^6/uL (3.72-5.28); RED CELL DISTRIBUTION WIDTH 14.7 % (11.5-14.0); SEGMENTED NEUTROPHILS % (AUTO) 49.9 % (42-78); WHITE BLOOD COUNT 4.8 10^3/uL (4.0-10.5)
[2017-06-20 14:56] LABS: APPEARANCE,URINE SLIGHTLY-CLOUDY; BILIRUBIN,URINE NEGATIVE (NEGATIVE); GLUCOSE, URINE NEGATIVE (NEGATIVE); KETONES,URINE NEGATIVE (NEGATIVE); LEUKOCYTE ESTERASE,URINE SMALL (NEGATIVE); NITRITE,URINE NEGATIVE (NEGATIVE); PROTEIN,URINE NEGATIVE (NEGATIVE); URINE SPECIFIC GRAVITY 1.026; UROBILINOGEN,URINE NEGATIVE mg/dL (<2.0)
[2017-06-20 15:18] LABS: ANION GAP 8 (5-19); BLOOD UREA NITROGEN 11 mg/dL (7-20); CALCIUM 9.5 mg/dL (8.4-10.2); CARBON DIOXIDE 26 mmol/L (22-30); CHLORIDE 104 mmol/L (98-107); CREATININE RESULT 0.85 mg/dL (0.52-1.25); GLUCOSE 96 mg/dL (75-110); POTASSIUM 4.5 mmol/L (3.6-5.0); SODIUM 138.1 mmol/L (137-145)
--- NOTE | 2017-06-20 15:26 | RADIOLOGY REPORT (SQ) ---
EXAM DESCRIPTION: CHEST SINGLE VIEW COMPLETED DATE/TIME: 06/20/2017 2:53 pm REASON FOR STUDY: PREOP COMPARISON: CT chest 06/27/2016 Two-view chest 08/03/2016 EXAM PARAMETERS: NUMBER OF VIEWS: One view. TECHNIQUE: Single frontal radiographic view of the chest acquired. RADIATION DOSE: NA LIMITATIONS: Obese patient FINDINGS: LUNGS AND PLEURA: No opacities, masses or pneumothorax. No pleural effusion. MEDIASTINUM AND HILAR STRUCTURES: No masses. Contour normal. HEART AND VASCULAR STRUCTURES: Heart normal in size. Normal vasculature. BONES: No acute findings. HARDWARE: None in the chest. OTHER: No other significant finding. IMPRESSION: NO ACUTE RADIOGRAPHIC FINDING IN THE CHEST. TECHNICAL DOCUMENTATION: JOB ID: [id number] [employer]- All Rights Reserved
[2017-06-20] MEDS ORDERED: FAMOTIDINE INJ/PF 20 MG/2 ML SDV IV ONE (15:58)
[2017-06-20] MEDS ORDERED: BUPIVACAINE HCL 0.5 % INJ/PF 30 ML SDV ONE (16:15)
[2017-06-20] MEDS ORDERED: FENTANYL CITRATE INJ/PF 100 MCG/2 ML AMPUL ONE ×2 (16:26→19:21)
[2017-06-20] MEDS ORDERED: HYDROMORPHONE HCL INJ/PF 2 MG/ML AMPULE ONE (16:26)
[2017-06-20] MEDS ORDERED: MIDAZOLAM 2 MG/2 ML INJ ONE (16:26)
[2017-06-20] MEDS ORDERED: ACETAMINOPHEN 100 ML IV ONE (16:27)
[2017-06-20] MEDS ORDERED: PROPOFOL INJ 200 MG/20 ML VIAL IV ONE ×2 (16:27→19:21)
[2017-06-20] MEDS ORDERED: DIPHENHYDRAMINE HCL 50 MG/ML VIAL IV PRN (18:36)
[2017-06-20] MEDS ORDERED: MEPERIDINE HCL/PF INJ 25 MG/1 ML DISP.SYRIN IV PRN (18:36)
[2017-06-20] MEDS ORDERED: MORPHINE SULFATE 10 MG/ML INJ IV PRN (18:36)
[2017-06-20] MEDS ORDERED: OXYCODONE-ACETAMINOPHEN 5-325 MG TABLET PO PRN ×3 (18:36→19:47)
[2017-06-20] MEDS ORDERED: FENTANYL CITRATE INJ/PF 100 MCG/2 ML AMPUL IV PRN ×3 (18:36)
[2017-06-20] MEDS ORDERED: PROMETHAZINE HCL INJ 25 MG/1 ML VIAL IV PRN ×2 (18:36)
[2017-06-20] MEDS ORDERED: HYDROMORPHONE HCL INJ/PF 2 MG/ML AMPULE IV PRN (19:47)
[2017-06-20] MEDS ORDERED: ONDANSETRON HCL INJ/PF 4 MG/2 ML SDV IV PRN (19:47)
--- NOTE | 2017-06-20 19:47 | PDOC DISCHARGE SUMMARY ---
Discharge Summary (SDC) - Discharge Final Diagnosis: Left distal radius fracture Scapholunate Insufficiency Date of Surgery: 06/20/17 Discharge Date: 06/20/17 Condition: Good Treatment or Instructions: Schedule Follow Up w/ Dr. Jarvis Ernandez @ [facility] to be seen in 10-14 days or as scheduled [place]: [place]: [place]: Ice and elevate Keep splint clean/dry/intact. If your fingers become numb please unwrap the Allan wrap but leave the splint in place, if the sensation does not return within 30 minutes please return to the emergency department. May begin finger range of motion attempting to make full fist. Please use ibuprofen (Motrin or Advil) 600-800 mg every 8 hours as needed for pain or fever. You may also use acetaminophen (Tylenol) 1000 mg every 4-6 hours as needed for pain or fever. Please be aware that many medications contain acetaminophen, do not exceed a total of 1000 mg of acetaminophen every 6 hours. If ibuprofen and acetaminophen are not sufficient for your pain you may take the Percocet. Please be aware that the Percocet does contain Tylenol. Stool softener of choice when on pain medication. I have recommended vitamin C 500 mg daily for CRPS prophylaxis as indicated in the setting of a distal radius fracture. Prescriptions: Oxycodone HCl/Acetaminophen [Percocet 7.5-325 mg Tablet] 1 - 2 tab PO ASDIR PRN #55 tab PRN Reason: Discharge Diet: As Tolerated Respiratory Treatments at Home: Deep Breathing/Coughing, Incentive Spirometer Discharge Activity: No Lifting Over 10 Pounds, No Lifting/Push/Pulling Report the Following to Your Physician Immediately: Fever over 101 Degrees, Unusual Bleeding, Redness, Swelling, Warmth, Increased Soreness
--- NOTE | 2017-06-20 19:53 | Operative Report ---
Operative Report DATE OF SURGERY: 06/20/17 PREOPERATIVE DIAGNOSIS: Left distal radius fracture. Scapholunate Insufficiency POSTOPERATIVE DIAGNOSIS: Same OPERATION: ORIF LEFT distal radius extra-articular. Closed reduction percutaneous pinning scapholunate SURGEON: SUE KIRKPATRICK ANESTHESIA: GA COMPLICATIONS: None ESTIMATED BLOOD LOSS: Minimal PROCEDURE: Indication for above procedure: Pleasant 41-year-old female who sustained a fall onto her outstretched wrist left arm. Patient was seen in emergency room where radiographs demonstrated distal radius fracture. She subsequently followed up at my office which point we discussed findings on radiographs and treatment options. Given patient's young age, alignment and fracture stability met indications for operative intervention. Risks and benefits were explained to the patient she verbalized understanding consented for the procedure. Procedure In Detail: Patient was seen and evaluated in the preoperative holding area. The LEFT upper extremity was initialized and marked. Patient received 2g of Ancef IV for bacterial prophylaxis. Patient was taken back to the operative room where transferred to the operative table and placed under general anesthesia. Once they were adequately anesthetized and a nonsterile tourniquet was placed on his upper extremity. A surgical team debriefing was performed ensuring all instrumentation was available, the surgical procedure was discussed with possible concerns reviewed. The upper extremity was prepped with chlorhexidine and alcohol and draped in a sterile fashion. A timeout was done identifying correct patient, procedure and extremity everyone in attendance agree with this and verbalized no concerns.The extremity was exsanguinated the tourniquet was inflated to 250 mmHg. A longitudinal skin incision was made via a volar approach of Jonas along the FCR tendon sheath. The FCR tendon sheath was opened and the FCR retracted ulnarly, the palmar cutaneous branch of the median nerve was identified and protected throughout the entirety of the case. The radial artery was identified and retracted radially. Blunt dissection was performed to the FPL which was carefully sweeped ulnarly. This brought me to the pronator quadratus which was elevated off of the distal radius via sharp dissection with a 15 blade to allow later repair. The fracture was then identified and a reduction maneuver was performed utilizing a [place] elevator. Acceptable reduction was then obtained and a Acumed 3 hole volar distal radius plate was placed into position and fixated with a K wire distally x2. AP and lateral radiographs were then obtained demonstrating appropriate placement of the plate and acceptable reduction of the fracture. Using a reduction tenaculum I was able to bring the plate down to bone distally. After drilling distally a cortical screw was used bringing the plate further down to bone, avoiding any liftoff of the plate from the volar cortex that could cause flexor tendon irritation post- operativley. Drilling the near cortex and to but not thru the far cortex a locking screw was then placed in the remaining holes. The previous cortex screw was removed and replaced with a locking screw. Two additional screws were placed into the styloid giving further stability to the radial styloid piece. AP and lateral radius were then done confirming appropriate placement of plate with no evidence of penetration intra-articular or within the DRUJ. I then turned my attention to the proximal screws. I drilled bicortically bringing the plate down to bone with a cortex screw. The remaining 2 holes proximally were drilled bicortically placing the appropriate size cortex in the proximal most hole and a locking screw in the distal shaft hole. AP and lateral radiographs were done confirming appropriate placement of the plate and reduction of the fracture there was yarsanism of radial height, radial inclination and volar tilt. No evidence of dorsal screw prominence or intra- articular penetration of the DRUJ or radiocarpal joint. Given the finding of scapholunate widening preoperatively special attention was made to stress the scapholunate interval. Radial and ulnar deviation were performed demonstrating no evidence of widening on full supination and pronation on fluoroscopy. No evidence of scapholunate widening and normal scapholunate angle on lateral view. I was unable to elicit instability with Parham's maneuver. Given these findings and the fact patient had fairly significant swelling preoperatively I do not feel open repair was warranted at this time thus I proceeded with scapholunate percutaneous pinning. A small stab incision was made radially blunt dissection was performed and a drill guide was advanced to the scaphoid. Two 0.045 K wires were placed across the scapholunate interval. Final C-arm fluoroscopy demonstrated fixation of the scapholunate interval with no evidence of scapholunate widening and normal scapholunate angle. The pins were then bent and cut above the skin. The tourniquet was then deflated. Any venous bleeding was coagulated with bipolar cautery. I then closed the pronator quadratus with interrupted 3-0 Monocryl suture. Subcutaneous tissues were closed with interrupted 4-0 Monocryl suture. The skin was closed with a running subcuticular 4-0 Monocryl suture which was reinforced with Dermabond and Steri-Strips. 20 mL of 0.5% Marcaine were injected for postoperative pain control. Wound was dressed with sterile 4 x 4' s and patient was placed in a well-padded volar splint with bias wrap. Sponge counts, instrument counts and needle counts were correct. There was no intraoperative complications patient tolerated procedure well stable to PACU. Postoperative plan: Patient will be placed in a short arm cast at follow-up visit for an additional 4 weeks. At 6 weeks follow-up will proceed with pin removal. Will obtain radiographs at follow-up visit.
[2017-06-20] MEDS ORDERED: EPHEDRINE SULFATE INJ 50 MG/1 ML AMPULE ONE (19:58)
[2017-06-20] MEDS: MORPHINE SULFATE 10 MG/ML INJ ONE ×3 (19:59→20:15)
--- NOTE | 2017-06-20 20:17 | RADIOLOGY REPORT (SQ) ---
EXAM DESCRIPTION: NO CHG FLUORO; WRIST LEFT 2 VIEWS COMPLETED DATE/TIME: 06/20/2017 8:02 pm REASON FOR STUDY: ORIF LT WRIST S52.532A COLLES' FRACTURE OF LEFT RADIUS, INIT FOR CLOS FX COMPARISON: 06/16/2017. FLUOROSCOPY TIME: 1 minutes 36 seconds. 15 images saved to PACS. TECHNIQUE: Intra-operative images acquired during surgical procedure to evaluate progress. NUMBER OF IMAGES: 15 images. LIMITATIONS: None. FINDINGS: Surgical fixation with placement of hardware. IMPRESSION: IMAGE(S) OBTAINED DURING PROCEDURE. COMMENT: Quality ID [id number]: Final reports for procedures using fluoroscopy that document radiation exp osure indices, or exposure time and number of fluorographic images (if radiation exposure indices are not available) Please consult full operative report of the attending physician for description of the procedure. TECHNICAL DOCUMENTATION: JOB ID: [id number] [employer]- All Rights Reserved
[2017-06-20] MEDS: LABETALOL HCL INJ 20 MG/4 ML DISP.SYRIN IV ONE ×3 (20:34→21:08)
[2017-06-20] MEDS ORDERED: LABETALOL HCL INJ 20 MG/4 ML DISP.SYRIN IV ONE (21:45)
--- NOTE | 2017-06-20 23:09 | EKG REPORT ---
SEVERITY:- NORMAL ECG - SINUS RHYTHM : Confirmed by: Maryam Hendrix 20-Jun-2017 23:08:39
[2017-06-21 01:50] VITALS: BP 167/96
== END 2017-06-21 02:10 | disposition home or self-care (01) ==
LOC: OROUT 14:00 → 2S 21:45 → OROUT 06-21 02:10
PROVIDERS: ATTEND Orthopaedic Surgery
PROC: 0PSJ04Z Reposition Left Radius with Internal Fixation Device, Open Approach (ICD-10-PCS; principal; 2017-06-20 16:10)
DX: S52.532A Colles' fracture of left radius, initial encounter for closed fracture (principal); W19.XXXA Unspecified fall, initial encounter; M25.332 Other instability, left wrist; I10 Essential (primary) hypertension; E66.9 Obesity, unspecified; Z68.41 Body mass index [BMI] 40.0-44.9, adult; Z79.899 Other long term (current) drug therapy
CPT/HCPCS: 25607; 36415; 85025; 80048; 81001; 71010; 73100; 93005; 93010; 25320; C1713 ×2; J2250; J1100; J3490 ×2; J3010; J2270; J1170; J2370; J0330; J2405; J2704; S0028; J0690; J0131; 01830

== ENCOUNTER 2017-06-23 05:46 | Emergency (ER) | payer BC ==
[2017-06-23 05:54] VITALS: BP 147/97
--- NOTE | 2017-06-23 06:12 | ER Document Report ---
HPI - HPI Patient complains to provider of: got splint wet Onset: This morning Onset/Duration: Waxing and waning Pain Level: 4 Context: 41-year-old female that had open reduction and fixation on 06-20 dr camacho had plastic bag over the splint and Allan bandages that were placed postoperatively and thinks she got water down into her arm. Dr. barrera had told her to check in the emergency room if she got it wet. Associated Symptoms: None Exacerbated by: Denies Relieved by: Denies Recently seen / treated by doctor: No - ROS ROS below otherwise negative: Yes Systems Reviewed and Negative: Yes All other systems reviewed and negative - REPRODUCTIVE Reproductive: DENIES: : Past Medical History - General Information source: Patient - Social History Smoking Status: Unknown if Ever Smoked Frequency of alcohol use: None Drug Abuse: None Lives with: Family Family History: Arthritis, DM, Hyperlipidemia, Hypertension, Malignancy - Past Medical History Cardiac Medical History: Reports: Hx Hypertension Pulmonary Medical History: Reports: Hx Bronchitis - ANNUAL Renal/ Medical History: Reports: Hx Ovarian Cysts. Denies: Hx Peritoneal Dialysis Past Surgical History: Reports: Hx Orthopedic Surgery - Open reduction and internal fixation left wrist fracture - Immunizations Hx Diphtheria, Pertussis, Tetanus Vaccination: Yes Vertical Provider Document - CONSTITUTIONAL Agree With Documented VS: Yes Exam Limitations: No Limitations General Appearance: No Apparent Distress - INFECTION CONTROL TRAVEL OUTSIDE OF THE [place] IN LAST 30 DAYS: No - HEENT HEENT: Atraumatic - NECK Neck: Supple - RESPIRATORY O2 Sat by Pulse Oximetry: 97 - MUSCULOSKELETAL/EXTREMETIES Musculoskeletal/Extremeties: MAEW, FROM, Non-Tender Notes: allan wraps were moist, the white splinting wrap was not wet, proximal lower volar arm ? damp, splint dry. - NEURO Level of Consciousness: Awake, Alert, Appropriate Course - Re-evaluation Re-evalutation: 06/23/17 06:30 rewrapped with allan wraps, N/V intact. - Vital Signs Vital signs: Temp Pulse Resp BP Pulse Ox 97.7 F 111 H 18 147/97 H 97 06/23/17 05:47 06/23/17 05:47 06/23/17 05:47 06/23/17 05:47 06/23/17 05:47 Discharge - Discharge Clinical Impression: splint allan wrap replacement Condition: Good Disposition: HOME, SELF-CARE Instructions: Splint Precautions ([facility]) Additional Instructions: go to [facility] and get a splint/cast protector that is better than a plastic bag see dr. camacho on 07-05 as planned
== END 2017-06-23 06:44 | disposition home or self-care (01) ==
LOC: ER 05:46
DX: Z47.89 Encounter for other orthopedic aftercare (principal)
CPT/HCPCS: 99283

== ENCOUNTER 2017-12-01 15:59 | Emergency (ER) | payer BC ==
--- NOTE | 2017-12-01 17:03 | ER Document Report ---
ED Medical Screen (RME) - General Chief Complaint: Chest Pain Stated Complaint: CHEST PAIN Time Seen by Provider: 12/01/17 17:02 Mode of Arrival: Ambulatory Information source: Patient Notes: 42-year-old female presents with complaints of chest tightness sensation as well as light tightness sensation since noon. Patient denies any fevers and chills I have greeted and performed a rapid initial assessment of this patient. A comprehensive ED assessment and evaluation of the patient, analysis of test results and completion of the medical decision making process will be conducted by additional ED providers. PHYSICAL EXAMINATION: GENERAL: Well-appearing, well-nourished and in no acute distress. HEAD: Atraumatic, normocephalic. EYES: Pupils equal round extraocular movements intact, conjunctiva are normal. ENT: Nares patent NECK: Normal range of motion LUNGS: No respiratory distress Musculoskeletal: Normal range of motion NEUROLOGICAL: Normal speech, normal gait. PSYCH: Normal mood, normal affect. SKIN: Warm, Dry, normal turgor, no rashes or lesions noted. TRAVEL OUTSIDE OF THE [place] IN LAST 30 DAYS: No - Related Data Allergies/Adverse Reactions: No Known Allergies Allergy (Verified 06/20/17 15:31) Past Medical History - Social History Chew tobacco use (# tins/day): No Frequency of alcohol use: Occasional Drug Abuse: None - Past Medical History Cardiac Medical History: Reports: Hx Hypertension Denies: Hx Coronary Artery Disease, Hx Heart Attack Pulmonary Medical History: Reports: Hx Bronchitis - ANNUAL Denies: Hx Asthma, Hx COPD, Hx Pneumonia Neurological Medical History: Denies: Hx Cerebrovascular Accident, Hx Seizures Renal/ Medical History: Reports: Hx Ovarian Cysts. Denies: Hx Peritoneal Dialysis Musculoskeltal Medical History: Denies Hx Arthritis Past Surgical History: Reports: Hx Orthopedic Surgery - Open reduction and internal fixation left wrist fracture - Immunizations Hx Diphtheria, Pertussis, Tetanus Vaccination: Yes History of Influenza Vaccine for 04/2017 - 09/2017 Season: No Physical Exam - Vital signs Vitals: Temp Pulse Resp BP Pulse Ox 98.7 F 80 20 142/77 H 99 12/01/17 16:14 12/01/17 16:14 12/01/17 16:14 12/01/17 16:14 12/01/17 16:14 Course - Vital Signs Vital signs: Temp Pulse Resp BP Pulse Ox 98.7 F 80 20 142/77 H 99 12/01/17 16:14 12/01/17 16:14 12/01/17 16:14 12/01/17 16:14 12/01/17 16:14
[2017-12-01 17:50] LABS: ABSOLUTE BASOPHILS # (AUTO) 0.1 10^3/uL (0.0-0.2); ABSOLUTE EOSINOPHILS # (AUTO) 0.1 10^3/uL (0.0-0.6); ABSOLUTE LYMPHOCYTES (AUTO) 2.7 10^3/uL (0.5-4.7); ABSOLUTE MONOCYTES (AUTO) 0.8 10^3/uL (0.1-1.4); ABSOLUTE NEUT (AUTO) 3.7 10^3/uL (1.7-8.2); BASOPHILS % (AUTO) 0.8 % (0-2); EOSINOPHILS % (AUTO) 1.8 % (0-6); HEMATOCRIT 36.1 % (36.0-47.0); HEMOGLOBIN 11.9 g/dL (12.0-15.5); LYMPHOCYTES % (AUTO) 36.6 % (13-45); MEAN CORPUSCULAR HEMOGLOBIN 29.6 pg (27.0-33.4); MEAN CORPUSCULAR HGB CONC 33.1 g/dL (32.0-36.0); MEAN CORPUSCULAR VOLUME 90 fl (80-97); MONOCYTES % (AUTO) 10.5 % (3-13); PLATELET COUNT 239 10^3/uL (150-450); RED BLOOD COUNT 4.03 10^6/uL (3.72-5.28); RED CELL DISTRIBUTION WIDTH 15.2 % (11.5-14.0); SEGMENTED NEUTROPHILS % (AUTO) 50.3 % (42-78); TOTAL CELLS COUNTED % (AUTO) 100 %; WHITE BLOOD COUNT 7.4 10^3/uL (4.0-10.5)
[2017-12-01 18:06] LABS: ALANINE AMINOTRANSFERASE 31 U/L (9-52); ALBUMIN 3.9 g/dL (3.5-5.0); ALKALINE PHOSPHATASE 71 U/L (38-126); ANION GAP 9 (5-19); ASPARTATE AMINO TRANSFERASE 25 U/L (14-36); BILIRUBIN,DIRECT 0.2 mg/dL (0.0-0.4); BILIRUBIN,TOTAL 0.4 mg/dL (0.2-1.3); BLOOD UREA NITROGEN 10 mg/dL (7-20); CALCIUM 9.3 mg/dL (8.4-10.2); CARBON DIOXIDE 26 mmol/L (22-30); CHLORIDE 108 mmol/L (98-107); CREATINE KINASE 141 U/L (30-135); GLUCOSE 81 mg/dL (75-110); POTASSIUM 4.2 mmol/L (3.6-5.0); SODIUM 142.9 mmol/L (137-145); TOTAL PROTEIN 7.1 g/dL (6.3-8.2)
--- NOTE | 2017-12-01 18:10 | RADIOLOGY REPORT (SQ) ---
EXAM DESCRIPTION: CHEST SINGLE VIEW COMPLETED DATE/TIME: 12/01/2017 5:59 pm REASON FOR STUDY: chest pain COMPARISON: 06/20/2017 EXAM PARAMETERS: NUMBER OF VIEWS: One view. TECHNIQUE: Single frontal radiographic view of the chest acquired. RADIATION DOSE: NA LIMITATIONS: None. FINDINGS: LUNGS AND PLEURA: No opacities, masses or pneumothorax. No pleural effusion. MEDIASTINUM AND HILAR STRUCTURES: No masses. Contour normal. HEART AND VASCULAR STRUCTURES: Heart normal in size. Normal vasculature. BONES: No acute findings. HARDWARE: None in the chest. OTHER: No other significant finding. IMPRESSION: NO ACUTE RADIOGRAPHIC FINDING IN THE CHEST. TECHNICAL DOCUMENTATION: JOB ID: [id number] 2010 [employer]- All Rights Reserved Reading location - IP/workstation name: [employer]
[2017-12-01 18:19] LABS: CREATINE KINASE MB 0.86 ng/mL (<4.55); NT PRO BNP 173 pg/mL (<125)
[2017-12-01 18:20] LABS: TROPONIN I < 0.012 ng/mL
--- NOTE | 2017-12-01 18:26 | EKG REPORT ---
SEVERITY:- NORMAL ECG - SINUS RHYTHM : Confirmed by: Thanh Duckworth MD 01-Dec-2017 18:26:35
--- NOTE | 2017-12-01 19:49 | ER Document Report ---
ED General - General Chief Complaint: Chest Pain Stated Complaint: CHEST PAIN Time Seen by Provider: 12/01/17 17:02 Mode of Arrival: Ambulatory Notes: Patient is a 42-year-old female with past medical history of obesity and hypertension who presents with left-sided chest pressure that started approximately 11 AM today and has since resolved spontaneously. She states that it was an abrupt onset of a pressure-like sensation over her left chest. Nothing improves or worsen the symptom when it was present and it did spontaneously resolve. She denies any associated diaphoresis, nausea, vomiting or shortness of breath. She notes that she is also concerned about some left lower extremity cramping but she is uncertain of how long this has been present. She denies any history of DVT or pulmonary embolus. At the time of my assessment she denies any ongoing complaint. She has not spoken to her primary care doctor regarding today's concerns. She has no known cardiac history. TRAVEL OUTSIDE OF THE [place] IN LAST 30 DAYS: No - Related Data Allergies/Adverse Reactions: No Known Allergies Allergy (Verified 06/20/17 15:31) Past Medical History - General Information source: Patient - Social History Smoking Status: Current Every Day Smoker Chew tobacco use (# tins/day): No Frequency of alcohol use: Occasional Drug Abuse: None Lives with: Family Family History: Arthritis, DM, Hyperlipidemia, Hypertension, Malignancy Patient has suicidal ideation: No Patient has homicidal ideation: No - Past Medical History Cardiac Medical History: Reports: Hx Hypertension Denies: Hx Coronary Artery Disease, Hx Heart Attack Pulmonary Medical History: Reports: Hx Bronchitis - ANNUAL Denies: Hx Asthma, Hx COPD, Hx Pneumonia Neurological Medical History: Denies: Hx Cerebrovascular Accident, Hx Seizures Renal/ Medical History: Reports: Hx Ovarian Cysts. Denies: Hx Peritoneal Dialysis Musculoskeltal Medical History: Denies Hx Arthritis Past Surgical History: Reports: Hx Orthopedic Surgery - Open reduction and internal fixation left wrist fracture - Immunizations Hx Diphtheria, Pertussis, Tetanus Vaccination: Yes Review of Systems - Review of Systems Notes: Constitutional: Negative for fever. HENT: Negative for sore throat. Eyes: Negative for visual changes. Cardiovascular: Positive for chest pressure now resolved Respiratory: Negative for shortness of breath. Gastrointestinal: Negative for abdominal pain, vomiting or diarrhea. Genitourinary: Negative for dysuria. Musculoskeletal: Negative for back pain. Skin: Negative for rash. Neurological: Negative for headaches, weakness or numbness. 10 point ROS negative except as marked above and in HPI. Physical Exam - Vital signs Vitals: Temp Pulse Resp BP Pulse Ox 98.7 F 80 20 142/77 H 99 12/01/17 16:14 12/01/17 16:14 12/01/17 16:14 12/01/17 16:14 12/01/17 16:14 Interpretation: Hypertensive Notes: PHYSICAL EXAMINATION: GENERAL: Well-appearing, well-nourished and in no acute distress. HEAD: Atraumatic, normocephalic. EYES: Pupils equal round and reactive to light, extraocular movements intact, sclera anicteric, conjunctiva are normal. ENT: nares patent, oropharynx clear without exudates. Moist mucous membranes. NECK: Normal range of motion, supple without lymphadenopathy LUNGS: Breath sounds clear to auscultation bilaterally and equal. No wheezes rales or rhonchi. HEART: Regular rate and rhythm without murmurs ABDOMEN: Soft, morbidly obese abdomen, nontender, normoactive bowel sounds. No guarding, no rebound. No masses appreciated. EXTREMITIES: Normal range of motion, trace edema at the bilateral ankles that is equal and symmetric. No cyanosis. NEUROLOGICAL: No focal neurological deficits. Moves all extremities spontaneously and on command. PSYCH: Normal mood, normal affect. SKIN: Warm, Dry, normal turgor, no rashes or lesions noted. Course - Re-evaluation Re-evalutation: 12/01/17 19:48 Presentation of chest pain in an otherwise well appearing patient. Low clinical suspicion for ACS given clinical history, exam, EKG without ST elevations or depressions, and negative initial troponin. HEART score less than or equal to 3. PE also seems unlikely given clinical history, absence of tachycardia or dyspnea. Patient is PERC criteria negative. CXR without evidence of pneumothorax or pneumonia. No widened mediastinum. Aortic dissection also seems unlikely given history, symmetric pulses, CXR, and vitals. Will repeat delta troponin if this remains normal will plan for discharge home. 12/01/17 21:01 Repeat troponin remains normal. Final assessment: Chest pain in a patient without evidence of cardiac or other serious etiology on workup today. I discussed with patient that, based on their age, risk factors and emergency department testing today, the likelihood that their symptoms are related to a heart attack is very low (estimated risk of heart attack or over the next 30 days of less than 1%). The patient demonstrates decision making capacity and has verbalized an understanding of these risks to me. Based on this, the patient has chosen to follow-up as an outpatient. Usual chest pain return precautions reviewed. The patient states understanding and agreement with this plan. - Vital Signs Vital signs: Temp Pulse Resp BP Pulse Ox 98.3 F 80 21 H 131/83 H 95 12/01/17 20:00 12/01/17 16:14 12/01/17 19:24 12/01/17 20:01 12/01/17 20:01 - Laboratory Result Diagrams: 12/01/17 17:31 12/01/17 17:31 Laboratory results interpreted by me: 12/01/17 12/01/17 12/01/17 17:31 17:31 17:31 Hgb 11.9 L RDW 15.2 H Chloride 108 H Creatine Kinase 141 H NT-Pro-B Natriuret Pep 173 H - Diagnostic Test Radiology reviewed: Image reviewed, Reports reviewed Radiology results interpreted by me: 12/01/17 19:48 Chest x-ray: No acute infiltrate or pneumothorax - EKG Interpretation by Me Additional EKG results interpreted by me: 12/01/17 19:48 Sinus rhythm. Rate 83. No ST elevations or depressions. QTC is 485. Discharge - Discharge Clinical Impression: Chest discomfort, Bilateral lower extremity edema Condition: Good Disposition: HOME, SELF-CARE Additional Instructions: You were seen today for chest pain. The exact cause of your pain is unclear. However, based on your cardiac enzyme testing, chest x-ray, and EKG it does not appear that it is from an immediately life-threatening cause at this time. Although your testing here is normal is critical that you follow-up with your primary care physician for continued evaluation of this chest pain and possible stress testing. I recommended you see your physician within the next 24-48 hours to be evaluated for consideration of a stress test. Please return to emergency department immediately if you have worsening of your chest pain, shortness of breath, vomiting, become unable to exert yourself due to pain or difficulty breathing, you pass out, or have any pain that radiates into your arms, jaw, or back. Please also return if you have any additional symptoms that are concerning to you.
[2017-12-01 21:34] VITALS: BP 156/93
== END 2017-12-01 21:30 | disposition home or self-care (01) ==
LOC: ER 15:59
DX: R07.9 Chest pain, unspecified (principal); R60.9 Edema, unspecified; F17.200 Nicotine dependence, unspecified, uncomplicated; I10 Essential (primary) hypertension
CPT/HCPCS: 36415; 71045; 80053; 82550; 82553; 83880; 84484; 85025; 85379; 93005; 93010; 99285

== ENCOUNTER 2018-01-29 14:02 | Emergency (ER) | payer BC ==
--- NOTE | 2018-01-29 14:42 | ER Document Report ---
ED Extremity Problem, Lower - General Chief Complaint: Knee Pain Stated Complaint: KNEE PAIN Time Seen by Provider: 01/29/18 14:41 Mode of Arrival: Wheelchair Information source: Patient Notes: Patient is a 42-year-old female who presents to the ER today for left knee pain after fall on it last week. Patient has a history of a sprain to this knee, approximately 3 months ago, but has never had any surgery on the knee. Patient states that when she fell she was standing up from a sitting position and her knee "gave out on me" and she fell to the floor onto the kneecap. Patient denies any numbness or tingling, denies any shooting pain anywhere. She states that she cannot bend the knee because of the pain. TRAVEL OUTSIDE OF THE [place] IN LAST 30 DAYS: No - Related Data Allergies/Adverse Reactions: No Known Allergies Allergy (Verified 06/20/17 15:31) Past Medical History - General Information source: Patient - Social History Smoking Status: Never Smoker Family History: Arthritis, DM, Hyperlipidemia, Hypertension, Malignancy - Past Medical History Cardiac Medical History: Reports: Hx Hypertension Denies: Hx Coronary Artery Disease, Hx Heart Attack Pulmonary Medical History: Reports: Hx Bronchitis - ANNUAL Denies: Hx Asthma, Hx COPD, Hx Pneumonia Neurological Medical History: Denies: Hx Cerebrovascular Accident, Hx Seizures Renal/ Medical History: Reports: Hx Ovarian Cysts. Denies: Hx Peritoneal Dialysis Musculoskeletal Medical History: Denies Hx Arthritis Past Surgical History: Reports: Hx Orthopedic Surgery - Open reduction and internal fixation left wrist fracture - Immunizations Hx Diphtheria, Pertussis, Tetanus Vaccination: Yes Review of Systems - Review of Systems Constitutional: No symptoms reported EENT: No symptoms reported Cardiovascular: No symptoms reported Respiratory: No symptoms reported Gastrointestinal: No symptoms reported Genitourinary: No symptoms reported Female Genitourinary: No symptoms reported Musculoskeletal: See HPI Skin: No symptoms reported Hematologic/Lymphatic: No symptoms reported Neurological/Psychological: No symptoms reported Physical Exam - Vital signs Vitals: Temp Pulse Resp BP Pulse Ox 98.3 F 67 18 151/98 H 99 01/29/18 14:10 01/29/18 14:10 01/29/18 14:10 01/29/18 14:10 01/29/18 14:10 - Notes Notes: PHYSICAL EXAMINATION: GENERAL: Uncomfortable appearing, but in no acute distress. HEAD: Atraumatic, normocephalic. EYES: Pupils equal round and reactive to light, extraocular movements intact, sclera anicteric, conjunctiva are normal. NECK: Normal range of motion, supple without lymphadenopathy LUNGS: CTAB and equal. No wheezes rales or rhonchi. HEART: Regular rate and rhythm without murmurs EXTREMITIES: Decreased range of motion of the left knee secondary to pain, pain on valgus stressing, patient would not tolerate anterior posterior drawer testing, no Coon's cyst noted, no pitting edema. No cyanosis. NEUROLOGICAL: Cranial nerves grossly intact. Normal sensory/motor exams. PSYCH: Normal mood, normal affect. SKIN: Warm, Dry, normal turgor, no rashes or lesions noted Course - Re-evaluation Re-evalutation: 01/29/18 15:39 Left knee x-ray reports joint effusion. I am concerned for an internal knee injury such as ligament tear or meniscal tear or sprain. Patient was placed in knee immobilizer brace here, given crutches and orthopedic information for follow-up. - Vital Signs Vital signs: Temp Pulse Resp BP Pulse Ox 98.3 F 67 18 151/98 H 99 01/29/18 14:10 01/29/18 14:10 01/29/18 14:10 01/29/18 14:10 01/29/18 14:10 Discharge - Discharge Clinical Impression: Knee injury Qualifiers: Encounter type: initial encounter Laterality: left Qualified Code(s): S89.92XA - Unspecified injury of left lower leg, initial encounter Condition: Stable Disposition: HOME, SELF-CARE Instructions: Ice & Elevation ([facility]), Suspected Internal Knee Injury ([facility]), Knee Immobilizing Splint ([facility]) Additional Instructions: Return immediately for any new or worsening symptoms. Follow up with orthopedic doctor, call tomorrow to make followup appointment. Prescriptions: Oxycodone HCl/Acetaminophen [Percocet 5-325 mg Tablet] 1 - 2 tab PO Q4H PRN #15 tablet PRN Reason: Referrals: DENISE HOLDER MD [ACTIVE STAFF] - Follow up as needed
[2018-01-29] MEDS ORDERED: OXYCODONE-ACETAMINOPHEN 5-325 MG TABLET PO ONE (14:52)
--- NOTE | 2018-01-29 15:24 | RADIOLOGY REPORT (SQ) ---
EXAM DESCRIPTION: KNEE LEFT 4 VIEW COMPLETED DATE/TIME: 01/29/2018 3:13 pm REASON FOR STUDY: left knee injury, pain COMPARISON: None. NUMBER OF VIEWS: Four views. TECHNIQUE: AP, lateral, and both oblique radiographic images acquired of the left knee. LIMITATIONS: None. FINDINGS: MINERALIZATION: Normal. BONES: No acute fracture or dislocation. No worrisome bone lesions. JOINT: Joint effusion. SOFT TISSUES: No soft tissue swelling. No radio-opaque foreign body. OTHER: No other significant finding. IMPRESSION: Joint effusion. TECHNICAL DOCUMENTATION: JOB ID: [id number] [employer]- All Rights Reserved Reading location - IP/workstation name: [email or web address]
[2018-01-29 16:05] VITALS: BP 158/95
== END 2018-01-29 16:04 | disposition home or self-care (01) ==
LOC: ER 14:02
DX: S89.92XA Unspecified injury of left lower leg, initial encounter (principal); M25.562 Pain in left knee; M25.462 Effusion, left knee; W19.XXXA Unspecified fall, initial encounter; I10 Essential (primary) hypertension
CPT/HCPCS: 99283

== ENCOUNTER 2018-11-17 16:01 | Emergency (ER) | payer SELFPAY ==
[2018-11-17 16:07] VITALS: BP 152/92
[2018-11-17] MEDS ORDERED: ONDANSETRON HCL INJ/PF 4 MG/2 ML SDV IV ONE (16:30)
[2018-11-17] MEDS ORDERED: KETOROLAC TROMETHAMINE INJ/PF 30 MG/1 ML SDV IV ONE (16:30)
[2018-11-17] MEDS ORDERED: MORPHINE SULFATE 10 MG/ML INJ IV ONE (16:46)
--- NOTE | 2018-11-17 16:46 | ER Document Report ---
ED Medical Screen (RME) - General Chief Complaint: Flank Pain Stated Complaint: RIGHT SIDE PAIN Time Seen by Provider: 11/17/18 16:28 Mode of Arrival: Ambulatory Information source: Patient Notes: Patient is a 43-year-old female presenting with right flank pain that started this morning when she woke up. Patient reports she took 2 Tylenols and went back to sleep hoping the pain would go away. She states that she woke up with worse pain. Patient denies any radiation of the pain, denies any vomiting but reports severe nausea. Patient denies any dysuria or urinary frequency. Denies history of kidney stones. Exam: Right CVA tenderness. I have greeted and performed a rapid initial assessment of this patient. A comprehensive ED assessment and evaluation of the patient, analysis of test results and completion of the medical decision making process will be conducted by additional ED providers. Dictation of this chart was performed using voice recognition software; therefore, there may be some unintended grammatical errors. TRAVEL OUTSIDE OF THE [place] IN LAST 30 DAYS: No - Related Data Allergies/Adverse Reactions: No Known Allergies Allergy (Verified 11/17/18 16:01) Past Medical History - Past Medical History Cardiac Medical History: Reports: Hx Hypertension Denies: Hx Coronary Artery Disease, Hx Heart Attack Pulmonary Medical History: Reports: Hx Bronchitis - ANNUAL Denies: Hx Asthma, Hx COPD, Hx Pneumonia Neurological Medical History: Denies: Hx Cerebrovascular Accident, Hx Seizures Renal/ Medical History: Reports: Hx Ovarian Cysts. Denies: Hx Peritoneal Dialysis Musculoskeltal Medical History: Denies Hx Arthritis Past Surgical History: Reports: Hx Orthopedic Surgery - Open reduction and internal fixation left wrist fracture - Immunizations Hx Diphtheria, Pertussis, Tetanus Vaccination: Yes History of Influenza Vaccine for 04/2017 - 09/2017 Season: No Physical Exam - Vital signs Vitals: Temp Pulse Resp BP Pulse Ox 98.7 F 85 18 152/92 H 99 11/17/18 16:05 11/17/18 16:05 11/17/18 16:05 11/17/18 16:05 11/17/18 16:05 Course - Vital Signs Vital signs: Temp Pulse Resp BP Pulse Ox 98.7 F 85 18 152/92 H 99 11/17/18 16:05 11/17/18 16:05 11/17/18 16:05 11/17/18 16:05 11/17/18 16:05 - Laboratory Result Diagrams: 11/17/18 16:41 11/17/18 16:41
[2018-11-17 17:04] LABS: ABSOLUTE BASOPHILS # (AUTO) 0.1 10^3/uL (0.0-0.2); ABSOLUTE EOSINOPHILS # (AUTO) 1.3 10^3/uL (0.0-0.6); ABSOLUTE LYMPHOCYTES (AUTO) 2.4 10^3/uL (0.5-4.7); ABSOLUTE MONOCYTES (AUTO) 0.7 10^3/uL (0.1-1.4); ABSOLUTE NEUT (AUTO) 4.1 10^3/uL (1.7-8.2); BASOPHILS % (AUTO) 1.2 % (0-2); EOSINOPHILS % (AUTO) 15.7 % (0-6); HEMATOCRIT 41.5 % (36.0-47.0); HEMOGLOBIN 13.9 g/dL (12.0-15.5); LYMPHOCYTES % (AUTO) 27.9 % (13-45); MEAN CORPUSCULAR HEMOGLOBIN 30.2 pg (27.0-33.4); MEAN CORPUSCULAR HGB CONC 33.6 g/dL (32.0-36.0); MEAN CORPUSCULAR VOLUME 90 fl (80-97); MONOCYTES % (AUTO) 7.6 % (3-13); PLATELET COUNT 279 10^3/uL (150-450); RED BLOOD COUNT 4.61 10^6/uL (3.72-5.28); SEGMENTED NEUTROPHILS % (AUTO) 47.6 % (42-78); TOTAL CELLS COUNTED % (AUTO) 100 %; WHITE BLOOD COUNT 8.6 10^3/uL (4.0-10.5)
[2018-11-17 17:17] LABS: ALANINE AMINOTRANSFERASE 24 U/L (9-52); ALBUMIN 4.2 g/dL (3.5-5.0); ALKALINE PHOSPHATASE 83 U/L (38-126); ANION GAP 9 (5-19); ASPARTATE AMINO TRANSFERASE 18 U/L (14-36); BILIRUBIN,DIRECT 0.1 mg/dL (0.0-0.4); BILIRUBIN,TOTAL 1.2 mg/dL (0.2-1.3); BLOOD UREA NITROGEN 9 mg/dL (7-20); CALCIUM 9.9 mg/dL (8.4-10.2); CARBON DIOXIDE 26 mmol/L (22-30); CHLORIDE 106 mmol/L (98-107); GLUCOSE 107 mg/dL (75-110); POTASSIUM 4.5 mmol/L (3.6-5.0); SODIUM 140.7 mmol/L (137-145); TOTAL PROTEIN 7.9 g/dL (6.3-8.2)
[2018-11-17] MEDS: NORMAL SALINE 1000 ML 1,000 ML IV PRN ×2 (17:56→18:49)
[2018-11-17] MEDS ORDERED: HYDROMORPHONE HCL INJ/PF 2 MG/ML AMPULE IV ONE ×2 (18:43→23:15)
--- NOTE | 2018-11-17 19:14 | ER Document Report ---
Addendum entered and electronically signed by AIDAN VELARDE PA-C 11/18/18 02:02: Course - Re-evaluation Re-evalutation: 11/18/18 02:00 Addendum to the opening line in patient's course of her stay here. Stated originally something presentation was 181 along with the original idea of kidney stone. This should in fact read patient presented with a complicated case today and that her presentation was 1 of those that went along with the original idea of a kidney stone. - Vital Signs Vital signs: Temp Pulse Resp BP Pulse Ox 98.5 F 79 18 152/92 H 99 11/17/18 23:29 11/17/18 23:29 11/17/18 23:29 11/17/18 23:29 11/17/18 23:29 - Laboratory Result Diagrams: 11/17/18 16:41 11/17/18 16:41 Laboratory results interpreted by me: 11/17/18 11/17/18 16:41 18:40 RDW 15.0 H Eosinophils % 15.7 H Absolute Eosinophils 1.3 H Urine Ketones TRACE H Ur Leukocyte Esterase TRACE H Addendum entered and electronically signed by AIDAN VELARDE PA-C 11/18/18 01:52: Discharge - Discharge Clinical Impression: Right flank pain Shingles Qualifiers: Herpes zoster complications: without complications Qualified Code(s): B02.9 - Zoster without complications Disposition: HOME, SELF-CARE Instructions: Antinausea Medication ([facility]), Oral Narcotic Medication ([facility]), Shingles ([facility]) Additional Instructions: As we discussed I do not have a 100%, confirmatory diagnosis of shingles however your presentation leads me to that idea, since you are very sensitive to light touch in the area of your flank pain. It is only on one side that you hurt. I do not see an overt rash at this time however you just started with the symptoms this morning and the rash can break out any time within 24 to 72 hours. So at this point given that you were in close contact with your mother and the shingles recently I feel that we should go ahead and treat you for it. I am going to place you on acyclovir, pain medication, nausea medication a muscle relaxer. I want you to follow-up with your primary care doctor on Monday for reevaluation or should the pain get worse or increasing amount of discomfort return to ER for recheck. Prescriptions: Acyclovir [Zovirax 800 mg Tablet] 800 mg PO 5XD #50 tab Gabapentin 300 mg PO HSP PRN #20 ml PRN Reason: Ondansetron HCl [Zofran 4 mg Tablet] 1 - 2 tab PO Q4H PRN #10 tablet PRN Reason: Oxycodone HCl/Acetaminophen [Percocet 5-325 mg Tablet] 1 - 2 tab PO Q4H PRN #15 tablet PRN Reason: Forms: Elevated Blood Pressure [facility] [NO LOCAL MD] - Follow up as needed Original Note: ED GI/ - General Chief Complaint: Flank Pain Stated Complaint: RIGHT SIDE PAIN Time Seen by Provider: 11/17/18 16:28 Mode of Arrival: Ambulatory Information source: Patient Notes: Patient is a 43-year-old female comes emergency room complaining of right flank pain. Patient states that she got up around 830 this morning when she stood up she had severe tearing pain in her right side of her back. She went to the bathroom came back and lay down and took 2 Tylenol and went to sleep when she woke up the pain was still there and intensified itself. She states she became nauseated and vomited x2 and then had dry heaving ever since then. Patient denies any history of kidney stones she denies any dysuria she denies any abdominal pain she denies any diarrhea or constipation. Last bowel movement was yesterday. Last time she ate was yesterday. Her last menstrual. Was on 15 October. She is sexually active and is on no control. TRAVEL OUTSIDE OF THE [place] IN LAST 30 DAYS: No - HPI Patient complains to provider of: Flank pain Onset: This morning Timing/Duration: Sudden Quality of pain: Sharp, Stabbing Severity at maximum: Severe Severity in ED: Severe Pain Level: 5 Context: denies: Bad food, , Recent trauma Location: Right flank. No: Chest pain Vaginal bleeding (Compared to normal period): None : 0 Sexual history: Active Associated symptoms: Nausea, Vomiting Exacerbated by: Movement Relieved by: Denies Similar symptoms previously: No Recently seen / treated by doctor: No - Related Data Allergies/Adverse Reactions: No Known Allergies Allergy (Verified 11/17/18 16:01) Past Medical History - General Information source: Patient - Social History Smoking Status: Current Some Day Smoker Cigarette use (# per day): Yes - Only smokes when drinking Chew tobacco use (# tins/day): No Smoking Education Provided: No Frequency of alcohol use: Occasional Drug Abuse: None Lives with: Family Family History: Reviewed & Not Pertinent, Arthritis, DM, Hyperlipidemia, Hypertension, Malignancy Patient has suicidal ideation: No Patient has homicidal ideation: No - Past Medical History Cardiac Medical History: Reports: Hx Hypertension Denies: Hx Coronary Artery Disease, Hx Heart Attack Pulmonary Medical History: Reports: Hx Bronchitis - ANNUAL Denies: Hx Asthma, Hx COPD, Hx Pneumonia Neurological Medical History: Denies: Hx Cerebrovascular Accident, Hx Seizures Renal/ Medical History: Reports: Hx Ovarian Cysts. Denies: Hx Peritoneal Dialysis Musculoskeletal Medical History: Denies Hx Arthritis Past Surgical History: Reports: Hx Orthopedic Surgery - Open reduction and internal fixation left wrist fracture - Immunizations Hx Diphtheria, Pertussis, Tetanus Vaccination: Yes Review of Systems - Review of Systems Constitutional: No symptoms reported EENT: No symptoms reported Cardiovascular: No symptoms reported Respiratory: No symptoms reported Gastrointestinal: No symptoms reported. denies: Abdominal pain Genitourinary: No symptoms reported Female Genitourinary: No symptoms reported Musculoskeletal: See HPI, Back pain, Other - Right flank pain only Skin: No symptoms reported Hematologic/Lymphatic: No symptoms reported Neurological/Psychological: No symptoms reported -: Yes All other systems reviewed and negative Physical Exam - Vital signs Vitals: Temp Pulse Resp BP Pulse Ox 98.7 F 85 18 152/92 H 99 11/17/18 16:05 11/17/18 16:05 11/17/18 16:05 11/17/18 16:05 11/17/18 16:05 Interpretation: Hypertensive - Notes Notes: PHYSICAL EXAMINATION: GENERAL: Morbidly obese patient is a well-nourished well-developed 43-year-old female who is in no apparent distress on physical exam this afternoon however she does appear very uncomfortable in a moderate amount of pain. HEAD: Atraumatic, normocephalic. EYES: Pupils equal round and reactive to light, extraocular movements intact, conjunctiva are normal. ENT: Nares patent, oropharynx clear without exudates. Moist mucous membranes. LUNGS: Breath sounds clear to auscultation bilaterally and equal. No wheezes rales or rhonchi. HEART: Regular rate and rhythm without murmurs ABDOMEN: Soft, nondistended abdomen. No guarding, no rebound. No masses appreciated. Although patient's abdomen is soft with deep ballottement on the right lower quad and with compression from the posterior side I was able to elicit a small amount of tenderness in the right lower quad area. Female : deferred Musculoskeletal: Examination patient's area of concern is primarily her right flank area. Percussion to this area is extremely sensitive to the patient. Left side has no tenderness at all. After patient CT came back negative I ree xamined the area once again this time feigning the area with light touch and patient was exceptionally sensitive on the area on her right flank area to light touch. There was no external rash seen at this time. NEUROLOGICAL:. Normal speech, normal gait. Normal sensory, motor exams PSYCH: Normal mood, normal affect. SKIN: Warm, Dry, normal turgor, no rashes or lesions noted. Course - Re-evaluation Re-evalutation: 11/17/18 23:07 Patient presented a complicated case today and that her presentation was 181 along with a original idea of a kidney stone. It took forever for patient to urinate to see which direction we monitored going with the CT and then she was put on the back burner for other complicated cases that needed to be addressed. When the CT was finally done came back with no acute findings on it. Reevaluati on at that time again showed patient has some right flank tenderness. She has been complaining of continued pain and discomfort all day. Reevaluation with a nurse in the room and having patient undress I did not see any sign of an rash on the right side however in palpating the area but primarily just light touch in the area where patient was that showed a high increase in sensitivity and leads to the conclusion that this may be a early onset of shingles. Patient then informs us after talking about shingles that her mother 4 months ago and she had had a severe case of shingles a few weeks prior to that. If the 2 are related I do not know exactly but patient also states that she is under a recent amount of more stress and she is also dealing with the idea of annual back as a [employer] to work again. - Vital Signs Vital signs: Temp Pulse Resp BP Pulse Ox 98.7 F 85 18 152/92 H 99 11/17/18 16:05 11/17/18 16:05 11/17/18 16:05 11/17/18 16:05 11/17/18 16:05 - Laboratory Result Diagrams: 11/17/18 16:41 11/17/18 16:41 Laboratory results interpreted by me: 11/17/18 11/17/18 16:41 18:40 RDW 15.0 H Eosinophils % 15.7 H Absolute Eosinophils 1.3 H Urine Ketones TRACE H Ur Leukocyte Esterase TRACE H Discharge - Discharge Clinical Impression: Right flank pain Shingles Qualifiers: Herpes zoster complications: without complications Qualified Code(s): B02.9 - Zoster without complications Disposition: HOME, SELF-CARE Instructions: Antinausea Medication ([facility]), Oral Narcotic Medication ([facility]), Shingles ([facility]) Additional Instructions: As we discussed I do not have a 100%, confirmatory diagnosis of shingles however your presentation leads me to that idea since you are very sensitive to light touch in the area of your flank pain. It is only on one side the to hurt. I do not see an overt rash at this time however you just started with the symptoms this morning and the rash can break out any time within 24 to 72 hours. So at this point given that you were in close contact with your mother and the shingles recently I feel that we should go ahead and treat you for it. I am going to place you on acyclovir, pain medication, nausea medication a muscle relaxer. I want you to follow-up with your primary care doctor on Monday for reevaluation or should the pain get worse or increasing amount of discomfort return to ER for recheck. Prescriptions: Acyclovir [Zovirax 800 mg Tablet] 800 mg PO 5XD #50 tab Gabapentin 300 mg PO HSP PRN #20 ml PRN Reason: Ondansetron HCl [Zofran 4 mg Tablet] 1 - 2 tab PO Q4H PRN #10 tablet PRN Reason: Oxycodone HCl/Acetaminophen [Percocet 5-325 mg Tablet] 1 - 2 tab PO Q4H PRN #15 tablet PRN Reason: Forms: Elevated Blood Pressure [facility] [NO LOCAL MD] - Follow up as needed
[2018-11-17 19:52] LABS: APPEARANCE,URINE SLIGHTLY-CLOUDY; BILIRUBIN,URINE NEGATIVE (NEGATIVE); COLOR,URINE YELLOW; GLUCOSE, URINE NEGATIVE (NEGATIVE); KETONES,URINE TRACE mg/dL (NEGATIVE); LEUKOCYTE ESTERASE,URINE TRACE (NEGATIVE); NITRITE,URINE NEGATIVE (NEGATIVE); PROTEIN,URINE NEGATIVE (NEGATIVE); URINE SPECIFIC GRAVITY 1.023; UROBILINOGEN,URINE NEGATIVE mg/dL (<2.0)
--- NOTE | 2018-11-17 22:19 | RADIOLOGY REPORT (SQ) ---
CT ABDOMEN PELVIS WITHOUT IV CONTRAST HISTORY: Right flank pain. COMPARISON: None. TECHNIQUE: CT scan of the abdomen and pelvis was performed without IV contrast. This exam was performed according to our departmental dose-optimization program, which includes automated exposure control, adjustment of the mA and/or kV according to patient size and/or use of iterative reconstruction technique. FINDINGS: The lung bases are clear. No pleural or pericardial effusions. There is no hiatal hernia. The liver, spleen, pancreas, gallbladder, adrenal glands, and kidneys are unremarkable. No urinary stones are seen. The pelvic organs are also unremarkable. No small bowel obstruction. The appendix is normal. There is no evidence of diverticulitis. No intraperitoneal free fluid or free air is identified. The aorta is normal caliber. No acute osseous findings are appreciated. There is no body wall hernia. IMPRESSION: No acute abdominal or pelvic pathology.
== END 2018-11-17 23:31 | disposition home or self-care (01) ==
LOC: ER 16:01
DX: B02.9 Zoster without complications (principal); R10.9 Unspecified abdominal pain; Z79.899 Other long term (current) drug therapy; F17.210 Nicotine dependence, cigarettes, uncomplicated; I10 Essential (primary) hypertension; E66.01 Morbid (severe) obesity due to excess calories
CPT/HCPCS: 96376; 99284; 96361; 96374; 96375; 36415; 84703; 85025; 80053; 81001; 74176; J1885; J2270; J1170; J2405; J7030

== ENCOUNTER 2019-05-13 09:59 | Emergency (ER) | payer SELFPAY ==
[2019-05-13 10:41] VITALS: BP 154/91
[2019-05-13] MEDS ORDERED: CIPROFLOXACIN HCL/DEXAMETH OTIC DROP 7.5 ML AD ONE (10:56)
--- NOTE | 2019-05-13 10:58 | ER Document Report ---
HPI - HPI Time Seen by Provider: 05/13/19 10:43 Pain Level: 4 Notes: Patient is an otherwise healthy 43-year-old female presenting to the emergency department chief complaint of right ear pain. Patient reports pain started this morning. She denies any fevers or drainage from the ear. - CONSTITUTIONAL Constitutional: DENIES: Fever, Chills - EENT EENT: REPORTS: Ear Pain - REPRODUCTIVE Reproductive: DENIES: : Past Medical History - General Information source: Patient - Social History Smoking Status: Never Smoker Frequency of alcohol use: None Family History: Reviewed & Not Pertinent, Arthritis, DM, Hyperlipidemia, Hypertension, Malignancy Patient has suicidal ideation: No Patient has homicidal ideation: No - Past Medical History Cardiac Medical History: Reports: Hx Hypertension Denies: Hx Coronary Artery Disease, Hx Heart Attack Pulmonary Medical History: Reports: Hx Bronchitis - ANNUAL Denies: Hx Asthma, Hx COPD, Hx Pneumonia Neurological Medical History: Denies: Hx Cerebrovascular Accident, Hx Seizures Renal/ Medical History: Reports: Hx Ovarian Cysts. Denies: Hx Peritoneal Dialysis Musculoskeletal Medical History: Denies Hx Arthritis Past Surgical History: Reports: Hx Orthopedic Surgery - Open reduction and internal fixation left wrist fracture - Immunizations Hx Diphtheria, Pertussis, Tetanus Vaccination: Yes Vertical Provider Document - CONSTITUTIONAL Notes: PHYSICAL EXAMINATION: GENERAL: Well-appearing, well-nourished and in no acute distress. HEAD: Atraumatic, normocephalic. EYES: Pupils equal round extraocular movements intact, conjunctiva are normal. ENT: Nares patent, right ear canal erythematous and macerated, right TM bright red and bulging, left ear canal and TM unremarkable. No mastoid tenderness bilaterally. NECK: Normal range of motion, no cervical lymphadenopathy. LUNGS: No respiratory distress, lung sounds clear and equal bilaterally. Musculoskeletal: Normal range of motion NEUROLOGICAL: Normal speech, normal gait. PSYCH: Normal mood, normal affect. SKIN: Warm, Dry, normal turgor, no rashes or lesions noted. - INFECTION CONTROL TRAVEL OUTSIDE OF THE [place] IN LAST 30 DAYS: No Course - Re-evaluation Re-evalutation: Exam consistent with both otitis externa and otitis media. Patient will be placed on appropriate medications, will dispense Ciprodex here from the emergency department. Patient understands ED return precautions. The patient's emergency department workup and current diagnosis were explained to the patient and or family. Follow-up instructions were provided. Medication s if prescribed were discussed. Instructions for when to return to the emergency department including specific worrisome symptoms were discussed with the patient and/or family. - Vital Signs Vital signs: Temp Pulse Resp BP Pulse Ox 98.7 F 77 18 154/91 H 99 05/13/19 10:41 05/13/19 10:41 05/13/19 10:41 05/13/19 10:41 05/13/19 10:41 Discharge - Discharge Clinical Impression: Otitis media Qualifiers: Otitis media type: unspecified Chronicity: acute Qualified Code(s): H66.90 - Otitis media, unspecified, unspecified ear Otitis externa Qualifiers: Otitis externa type: unspecified type Chronicity: acute Laterality: right Qualified Code(s): H60.501 - Unspecified acute noninfective otitis externa, right ear Condition: Stable Disposition: HOME, SELF-CARE Additional Instructions: Otitis Media You have a middle ear infection (otitis media). This is usually a complication of a cold or sore throat. The middle ear cavity becomes filled with infection. Pressure and stretching of the ear drum cause pain. Antibiotics are required. A 10 day course is usually prescribed. A decongestant may be recommended if you have a "runny nose." You may need anesthetic drops or other pain medication. A follow-up exam may be recommended to make sure the infection has completely cleared. If the ear begins to drain, it means the ear drum has ruptured. This will usually heal spontaneously. However, it means you should keep the ear dry until re-examined by a doctor. Call the physician or return for examination at once if there is severe headache, stiff neck, confusion, increasing fever, or dizziness. You should improve significantly within two days. If you're not better, call the doctor. Otitis Externa You have otitis externa -- an infection of the outer ear canal. This can be very painful. It's sometimes called "swimmer's ear," because it often occurs after prolonged water exposure. Many things, such as earwax and dirt in the ear, can contribute to it. The usual treatment is antibiotic/antiinflammatory ear drops. Occasionally, a wick will be placed in the ear to draw in the medicine. If the infection is severe, an oral antibiotic may be prescribed. Pain medication is often needed. Avoid getting water in the ear. Outer ear infections often take longer to heal than you might expect. Some tenderness and ache in the ear may persist for about two weeks. See your physician if you fail to improve as expected. Call the doctor at once if you develop fever, increasing swelling (particularly if it makes your ear "poke out"), severe headache, stiff neck, or decreased hearing. Please take antibiotics as prescribed. Apply for drops of the Ciprodex eardrops to the affected ear twice daily for the next 7 days. Take Tylenol or Motrin for fever or pain. Follow-up with primary care if not improving over the next 3 to 5 days. Prescriptions: Amoxicillin 2 tab PO BID #20 tab Forms: Return to Work
[2019-05-13] MEDS ORDERED: FLUCONAZOLE 100 MG TABLET PO ONE (11:20)
== END 2019-05-13 11:27 | disposition home or self-care (01) ==
LOC: ER 09:59
DX: H66.90 Otitis media, unspecified, unspecified ear (principal); H60.501 Unspecified acute noninfective otitis externa, right ear; I10 Essential (primary) hypertension
CPT/HCPCS: 99282; J3490

== ENCOUNTER 2019-05-21 09:43 | Emergency (ER) | payer SELFPAY ==
[2019-05-21 11:15] LABS: APPEARANCE,URINE SLIGHTLY-CLOUDY; BILIRUBIN,URINE NEGATIVE (NEGATIVE); COLOR,URINE YELLOW; GLUCOSE, URINE NEGATIVE (NEGATIVE); KETONES,URINE NEGATIVE (NEGATIVE); LEUKOCYTE ESTERASE,URINE TRACE (NEGATIVE); NITRITE,URINE NEGATIVE (NEGATIVE); PROTEIN,URINE NEGATIVE (NEGATIVE); URINE SPECIFIC GRAVITY 1.021; UROBILINOGEN,URINE NEGATIVE mg/dL (<2.0)
[2019-05-21 11:59] LABS: ABSOLUTE BASOPHILS # (AUTO) 0.1 10^3/uL (0.0-0.2); ABSOLUTE EOSINOPHILS # (AUTO) 0.8 10^3/uL (0.0-0.6); ABSOLUTE LYMPHOCYTES (AUTO) 2.6 10^3/uL (0.5-4.7); ABSOLUTE MONOCYTES (AUTO) 0.6 10^3/uL (0.1-1.4); ABSOLUTE NEUT (AUTO) 4.1 10^3/uL (1.7-8.2); BASOPHILS % (AUTO) 0.8 % (0-2); EOSINOPHILS % (AUTO) 9.9 % (0-6); HEMATOCRIT 40.5 % (36.0-47.0); HEMOGLOBIN 13.5 g/dL (12.0-15.5); LYMPHOCYTES % (AUTO) 31.6 % (13-45); MEAN CORPUSCULAR HEMOGLOBIN 30.5 pg (27.0-33.4); MEAN CORPUSCULAR HGB CONC 33.3 g/dL (32.0-36.0); MEAN CORPUSCULAR VOLUME 91 fl (80-97); MONOCYTES % (AUTO) 7.1 % (3-13); PLATELET COUNT 296 10^3/uL (150-450); RED BLOOD COUNT 4.43 10^6/uL (3.72-5.28); RED CELL DISTRIBUTION WIDTH 15.1 % (11.5-14.0); SEGMENTED NEUTROPHILS % (AUTO) 50.6 % (42-78); TOTAL CELLS COUNTED % (AUTO) 100 %; WHITE BLOOD COUNT 8.2 10^3/uL (4.0-10.5)
[2019-05-21 12:21] LABS: ALBUMIN 4.2 g/dL (3.5-5.0); ALKALINE PHOSPHATASE 88 U/L (38-126); ANION GAP 8 (5-19); ASPARTATE AMINO TRANSFERASE 21 U/L (14-36); BILIRUBIN,DIRECT 0.1 mg/dL (0.0-0.4); BILIRUBIN,TOTAL 0.4 mg/dL (0.2-1.3); BLOOD UREA NITROGEN 10 mg/dL (7-20); CALCIUM 9.3 mg/dL (8.4-10.2); CARBON DIOXIDE 26 mmol/L (22-30); CHLORIDE 104 mmol/L (98-107); GLUCOSE 96 mg/dL (75-110); POTASSIUM 4.2 mmol/L (3.6-5.0); TOTAL PROTEIN 8.1 g/dL (6.3-8.2)
[2019-05-21] MEDS ORDERED: NORMAL SALINE 1000 ML 1,000 ML IV ONE (13:17)
[2019-05-21] MEDS ORDERED: KETOROLAC TROMETHAMINE INJ/PF 30 MG/1 ML SDV IV ONE (13:17)
--- NOTE | 2019-05-21 13:33 | ER Document Report ---
ED General - General Chief Complaint: Flank Pain Stated Complaint: FLANK PAIN Time Seen by Provider: 05/21/19 12:07 Primary Care Provider: [facility] [NO LOCAL MD] - Follow up as needed DAYANA SCHULER MD [ACTIVE STAFF] - Follow up as needed TRAVEL OUTSIDE OF THE [place] IN LAST 30 DAYS: No - HPI Notes: 43-year-old female presents to the ED for evaluation of sudden onset right flank pain that woke her up from sleep approximately 4 hours ago, patient states she has reported nausea. Pain is 10 out of 10, constant and stabbing. Denies any previous history of renal calculi. Has tried some jgcb-gsa-obxfard ibuprofen without relief this morning. Last menstrual period was May 10, 2019. Denies any history of trauma. Denies fevers, chills, chest pain,palpitations, shortness of breath, dyspnea, nausea, vomiting, diarrhea, speech changes, LH, dizziness, syncope, headaches, wheezing, ST, URI, neck pain, weakness, bowel or bladder dysfunction, saddle anesthesia, numbness or tingling in bilateral upper or lower extremities equally, muscle paralysis, weakness in bilateral upper or lower extremities equally or rash. - Related Data Allergies/Adverse Reactions: No Known Allergies Allergy (Verified 05/21/19 09:58) Past Medical History - General Information source: Patient - Social History Smoking Status: Current Every Day Smoker Chew tobacco use (# tins/day): No Frequency of alcohol use: Occasional Drug Abuse: None Family History: Reviewed & Not Pertinent, Arthritis, DM, Hyperlipidemia, Hypertension, Malignancy Patient has suicidal ideation: No Patient has homicidal ideation: No - Past Medical History Cardiac Medical History: Reports: Hx Hypertension Denies: Hx Coronary Artery Disease, Hx Heart Attack Pulmonary Medical History: Reports: Hx Bronchitis - ANNUAL Denies: Hx Asthma, Hx COPD, Hx Pneumonia Neurological Medical History: Denies: Hx Cerebrovascular Accident, Hx Seizures Renal/ Medical History: Reports: Hx Ovarian Cysts. Denies: Hx Peritoneal Dialysis Musculoskeletal Medical History: Denies Hx Arthritis Past Surgical History: Reports: Hx Orthopedic Surgery - Open reduction and internal fixation left wrist fracture - Immunizations Hx Diphtheria, Pertussis, Tetanus Vaccination: Yes Review of Systems - Review of Systems Constitutional: See HPI EENT: No symptoms reported Cardiovascular: No symptoms reported Respiratory: No symptoms reported Gastrointestinal: See HPI Genitourinary: No symptoms reported Female Genitourinary: No symptoms reported Musculoskeletal: No symptoms reported Skin: No symptoms reported Hematologic/Lymphatic: No symptoms reported Neurological/Psychological: No symptoms reported Physical Exam - Notes Notes: PHYSICAL EXAMINATION: reviewed vital signs by RN GENERAL: Well-appearing, well-nourished and in no acute distress. HEAD: Atraumatic, normocephalic. EYES: Pupils equal round and reactive to light, extraocular movements intact, conjunctiva are normal. ENT: Nares patent, oropharynx clear without exudates. Moist mucous membranes. NECK: Normal range of motion, supple without lymphadenopathy LUNGS: Breath sounds clear to auscultation bilaterally and equal. No wheezes rales or rhonchi. HEART: Regular rate and rhythm without murmurs ABDOMEN: Soft, nontender, nondistended abdomen. No guarding, no rebound. No masses appreciated. Right CVA tenderness on palpation Female : deferred Musculoskeletal: Normal range of motion, no pitting or edema. No cyanosis. NEUROLOGICAL: Cranial nerves grossly intact. Normal speech, normal gait. Normal sensory, motor exams PSYCH: Normal mood, normal affect. SKIN: Warm, Dry, normal turgor, no rashes or lesions noted. Course - Re-evaluation Re-evalutation: 05/21/19 17:35 Afebrile vital stable no distress. Nurse's notes reviewed. CBC negative for leukocytosis or anemia, CMP negative for hepatic or renal dysfunction, no electrolyte disturbances. Patient giving 1 L of IV fluids and Toradol which did help with her pain. Urinalysis shows slight leuk esterase, will obtain urine culture. Nitrates negative. CT abdomen pelvis without contrast negative for any acute findings. Patient states that franca is going back to work after her mother approximately 6 months ago, she reports it has been more stressful now that she is back at work. I suspect the etiology of her flank pain could be due to musculoskeletal pain work-up was negative. after performing a Medical Screening Examination, I estimate there is LOW risk for ACUTE APPENDICITIS, BOWEL OBSTRUCTION, ACUTE CHOLECYSTITIS, PERFORATED DIVERTICULITIS, INCARCERATED HERNIA, PANCREATITIS, PELVIC INFLAMMATORY DISEASE, PERFORATED ULCER, ECTOPIC , or TUBO-OVARIAN ABSCESS, thus I consider the discharge disposition reasonable. Also, there is no evidence or peritonitis, sepsis, or toxicity. I have reevaluated this patient multiple times and no significant life threatening changes are noted. The patient and I have discussed the diagnosis and risks, and we agree with discharging home with close follow-up with the understanding that symptoms and presentations can change. We also discussed returning to the Emergency Department immediately if new or worsening symptoms occur. We have discussed the symptoms which are most concerning (e.g., bloody stool, fever, changing or worsening pain, vomiting) that necessitate immediate return. - Laboratory Result Diagrams: 05/21/19 11:45 05/21/19 11:45 Laboratory results interpreted by me: 05/21/19 05/21/19 10:16 11:45 RDW 15.1 H Eos % (Auto) 9.9 H Absolute Eos (auto) 0.8 H Ur Leukocyte Esterase TRACE H Discharge - Discharge Clinical Impression: Right flank pain, Cough, Hypertension Condition: Stable Disposition: HOME, SELF-CARE Instructions: Antinausea Medication ([facility]), High Blood Pressure ([facility]), Toradol Injection ([facility]) Additional Instructions: all of your labs were negative. CT abdomen pelvis was negative, no renal stone noted, no pneumonia noted on chest x-ray. You were given IV fluids for hydration and pain medication. Please follow-up with your primary care provider tomorrow. Take Zofran as needed for nausea him, take meloxicam as needed for pain. If your symptoms become worse such as high fever, worsening pain, vomiting, etc to return immediately for re evaluation. Return immediately for any new or worsening symptoms. Follow up with primary care provider, call tomorrow to make followup appointment. Prescriptions: Hydrochlorothiazide [Hydrodiuril 25 mg Tablet] 25 mg PO QAM #30 tablet Meloxicam [Mobic] 7.5 mg PO DAILY #7 tablet Ondansetron [Zofran Odt 4 mg Tablet] 1 - 2 tab PO Q4H PRN #15 tab.rapdis PRN Reason: For Nausea/Vomiting Forms: Return to Work Referrals: [facility] [NO LOCAL MD] - Follow up as needed DAYANA SCHULER MD [ACTIVE STAFF] - Follow up as needed
--- NOTE | 2019-05-21 15:31 | RADIOLOGY REPORT (SQ) ---
EXAM DESCRIPTION: CT ABD/PELVIS NO ORAL OR IV COMPLETED DATE/TIME: 05/21/2019 3:05 pm REASON FOR STUDY: Right flank pain COMPARISON: CT of the abdomen pelvis without contrast from 11/17/2018. TECHNIQUE: CT scan of the abdomen and pelvis performed without intravenous or oral contrast. Images reviewed with lung, soft tissue, and bone windows. Reconstructed coronal and sagittal MPR images revi ewed. All images stored on PACS. All CT scanners at this facility use dose modulation, iterative reconstruction, and/or weight based d osing when appropriate to reduce radiation dose to as low as reasonably achievable (ALARA). [facility]: Dose Right [facility]: CareDose [facility]: Dose Right [facility]: Teradose 4D [facility]: [employer] RADIATION DOSE: CT Rad equipment meets quality standard of care and radiation dose reduction techniq ues were employed. CTDIvol: 26.4 mGy. DLP: 1512 mGy-cm.mGy. LIMITATIONS: None. FINDINGS: LOWER CHEST: Bibasilar atelectasis. NON-CONTRASTED LIVER, SPLEEN, ADRENALS: Evaluation is limited due to the absence of intravenous contr ast. The liver morphology is non cirrhotic. There is no CT evidence of hepatic steatosis. The sple en is normal in size. There is no abnormality of the adrenal glands. PANCREAS: No acute abnormality of the pancreas. GALLBLADDER: The gallbladder is contracted. RIGHT KIDNEY AND URETER: Evaluation is limited due to the absence of intravenous contrast. There is no hydronephrosis, nephrolithiasis, hydroureter or ureterolithiasis. LEFT KIDNEY AND URETER: Evaluation is limited due to the absence of intravenous contrast. There is n o hydronephrosis, nephrolithiasis, hydroureter or ureterolithiasis. AORTA AND RETROPERITONEUM: No aneurysmal dilatation of the abdominal aorta. No retroperitoneal adeno renetta, hemorrhage or mass. BOWEL AND PERITONEAL CAVITY: No bowel obstruction, bowel wall thickening or pericolonic/ perienteric inflammation. No free intraperitoneal fluid, mesenteric adenopathy, or mesenteric/peritoneal mass. APPENDIX: Normal. PELVIS, BLADDER, AND ABDOMINAL WALL:There is a fat containing umbilical hernia. The urinary bladder is nondistended. There is no pelvic adenopathy, free fluid or mass. BONES: The L5-S1 intervertebral disc space is narrowed and there is associated vacuum disc phenomena and endplate sclerosis; in addition, there is an osteophytic ridge eccentric to the left that abuts t he left S1 nerve root and in combination with facet joint arthropathy results in bilateral osteophyti c foraminal stenosis. There is no fracture. OTHER: No other finding. IMPRESSION: No acute intra-abdominal abnormality. COMMENT: Quality ID # [id number]: Final reports with documentation of one or more dose reduction techniques (e.g., Automated exposure control, adjustment of the mA and/or kV according to patient size, use of iterative reconstruction technique) TECHNICAL DOCUMENTATION: JOB ID: [id number] [employer]- All Rights Reserved Reading location - IP/workstation name: [facility]-
--- NOTE | 2019-05-21 15:44 | RADIOLOGY REPORT (SQ) ---
EXAM DESCRIPTION: CHEST 2 VIEWS COMPLETED DATE/TIME: 05/21/2019 3:21 pm REASON FOR STUDY: cough x 1 week COMPARISON: PA and lateral views of the chest from 08/03/2016. EXAM PARAMETERS: NUMBER OF VIEWS: two views TECHNIQUE: Digital Frontal and Lateral radiographic views of the chest acquired. RADIATION DOSE: NA LIMITATIONS: none FINDINGS: LUNGS AND PLEURA: No consolidation, pleural effusion or pneumothorax. MEDIASTINUM AND HILAR STRUCTURES: No mediastinal or hilar contour abnormality. HEART AND VASCULAR STRUCTURES: The cardiac silhouette and pulmonary vasculature are within normal velazco its. BONES: No acute findings. HARDWARE: None. OTHER: No other finding. IMPRESSION: No acute cardiopulmonary process. TECHNICAL DOCUMENTATION: JOB ID: [id number] [employer]- All Rights Reserved Reading location - IP/workstation name: [email or web address]
[2019-05-21 17:48] VITALS: BP 152/91
== END 2019-05-21 17:00 | disposition home or self-care (01) ==
LOC: ER 09:43
DX: R10.9 Unspecified abdominal pain (principal); I10 Essential (primary) hypertension; R11.0 Nausea; R05 Cough; F17.200 Nicotine dependence, unspecified, uncomplicated
CPT/HCPCS: 36415; 83690; 84703; 85025; 80053; 81001; 71046; 74176; J1885; J7030

== ENCOUNTER 2020-01-07 11:29 | Emergency (ER) | payer SELFPAY ==
--- NOTE | 2020-01-07 12:58 | RADIOLOGY REPORT (SQ) ---
EXAM DESCRIPTION: CHEST SINGLE VIEW IMAGES COMPLETED DATE/TIME: 01/07/2020 12:41 pm REASON FOR STUDY: shortness of breath COMPARISON: 05/21/2019 EXAM PARAMETERS: NUMBER OF VIEWS: One view. TECHNIQUE: Single frontal radiographic view of the chest acquired. RADIATION DOSE: NA LIMITATIONS: None. FINDINGS: LUNGS AND PLEURA: No opacities, masses or pneumothorax. No pleural effusion. MEDIASTINUM AND HILAR STRUCTURES: No masses. Contour normal. HEART AND VASCULAR STRUCTURES: Heart normal in size. Normal vasculature. BONES: No acute findings. HARDWARE: None in the chest. OTHER: No other significant finding. IMPRESSION: 1. No significant interval change is since the previous examination dated 05/21/2019. No acute findings. TECHNICAL DOCUMENTATION: JOB ID: [id number] [employer]- All Rights Reserved Reading location - IP/workstation name: [email or web address]
[2020-01-07 16:12] LABS: ABSOLUTE BASOPHILS # (AUTO) 0.1 10^3/uL (0.0-0.2); ABSOLUTE EOSINOPHILS # (AUTO) 0.2 10^3/uL (0.0-0.6); ABSOLUTE MONOCYTES (AUTO) 0.4 10^3/uL (0.1-1.4); ABSOLUTE NEUT (AUTO) 2.3 10^3/uL (1.7-8.2); EOSINOPHILS % (AUTO) 4.4 % (0-6); HEMATOCRIT 36.7 % (36.0-47.0); HEMOGLOBIN 12.3 g/dL (12.0-15.5); LYMPHOCYTES % (AUTO) 39.9 % (13-45); MEAN CORPUSCULAR HEMOGLOBIN 30.8 pg (27.0-33.4); MEAN CORPUSCULAR HGB CONC 33.6 g/dL (32.0-36.0); MEAN CORPUSCULAR VOLUME 92 fl (80-97); MONOCYTES % (AUTO) 8.3 % (3-13); PLATELET COUNT 271 10^3/uL (150-450); RED BLOOD COUNT 4.01 10^6/uL (3.72-5.28); RED CELL DISTRIBUTION WIDTH 15.2 % (11.5-14.0); SEGMENTED NEUTROPHILS % (AUTO) 46.4 % (42-78); TOTAL CELLS COUNTED % (AUTO) 100 %
[2020-01-07 16:29] LABS: ALBUMIN 3.7 g/dL (3.5-5.0); ALKALINE PHOSPHATASE 82 U/L (38-126); ASPARTATE AMINO TRANSFERASE 19 U/L (14-36); BILIRUBIN,TOTAL 0.4 mg/dL (0.2-1.3); BLOOD UREA NITROGEN 10 mg/dL (7-20); CALCIUM 9.1 mg/dL (8.4-10.2); CARBON DIOXIDE 26 mmol/L (22-30); CHLORIDE 108 mmol/L (98-107); GLUCOSE 101 mg/dL (75-110); POTASSIUM 4.3 mmol/L (3.6-5.0); TOTAL PROTEIN 7.1 g/dL (6.3-8.2)
[2020-01-07 16:34] LABS: ANION GAP 3 (5-19)
--- NOTE | 2020-01-07 17:47 | ER Document Report ---
ED General - General Chief Complaint: Shortness Of Breath Stated Complaint: SHORTNESS OF BREATH Time Seen by Provider: 01/07/20 13:05 Mode of Arrival: Ambulatory Information source: Patient TRAVEL OUTSIDE OF THE [place] IN LAST 30 DAYS: No - HPI Notes: Patient presents with shortness of breath body aches fever and chills. She states that she has had this for approximately 3 to 4 days. The body aches are generalized and radiate throughout her body. They are moderate in intensity. They are worse with exertion and better with rest. She is also had a dry nonproductive cough. No known COVID virus exposures. - Related Data Allergies/Adverse Reactions: No Known Allergies Allergy (Verified 05/21/19 09:58) Past Medical History - General Information source: Patient - Social History Smoking Status: Current Every Day Smoker Frequency of alcohol use: Occasional Drug Abuse: None Family History: Reviewed & Not Pertinent, Arthritis, DM, Hyperlipidemia, Hypertension, Malignancy Patient has homicidal ideation: No - Past Medical History Cardiac Medical History: Reports: Hx Hypertension Denies: Hx Coronary Artery Disease, Hx Heart Attack Pulmonary Medical History: Reports: Hx Bronchitis - ANNUAL, Hx COPD Denies: Hx Asthma, Hx Pneumonia Neurological Medical History: Denies: Hx Cerebrovascular Accident, Hx Seizures Renal/ Medical History: Reports: Hx Ovarian Cysts. Denies: Hx Peritoneal Dialysis Musculoskeletal Medical History: Denies Hx Arthritis Past Surgical History: Reports: Hx Orthopedic Surgery - Open reduction and internal fixation left wrist fracture - Immunizations Hx Diphtheria, Pertussis, Tetanus Vaccination: Yes Review of Systems - Review of Systems Constitutional: Chills, Fever, Malaise, Weakness Cardiovascular: denies: Chest pain, Palpitations Respiratory: Cough, Short of breath -: Yes All other systems reviewed and negative Physical Exam - Vital signs Vitals: Temp Pulse Resp BP Pulse Ox 98.3 F 65 20 150/97 H 99 01/07/20 12:15 01/07/20 12:15 01/07/20 12:15 01/07/20 12:15 01/07/20 12:15 Interpretation: Hypertensive - General General appearance: Appears well, Alert - HEENT Head: Normocephalic, Atraumatic Eyes: Normal Pupils: PERRL - Respiratory Respiratory status: No respiratory distress Chest status: Nontender Breath sounds: Normal Chest palpation: Normal - Cardiovascular Rhythm: Regular Heart sounds: Normal auscultation Murmur: No - Abdominal Inspection: Normal Distension: No distension Bowel sounds: Normal Tenderness: Nontender Organomegaly: No organomegaly - Back Back: Normal, Nontender - Extremities General upper extremity: Normal inspection, Nontender, Normal color, Normal ROM, Normal temperature General lower extremity: Normal inspection, Nontender, Normal color, Normal ROM, Normal temperature, Normal weight bearing. No: Ly's sign - Neurological Neuro grossly intact: Yes Cognition: Normal Orientation: AAOx4 [place] Coma Scale Eye Opening: Spontaneous [place] Coma Scale Verbal: Oriented [place] Coma Scale Motor: Obeys Commands [place] Coma Scale Total: 15 Speech: Normal Motor strength normal: LUE, RUE, LLE, RLE Sensory: Normal - Psychological Associated symptoms: Normal affect, Normal mood - Skin Skin Temperature: Warm Skin Moisture: Dry Skin Color: Normal Course - Vital Signs Vital signs: Temp Pulse Resp BP Pulse Ox 98.3 F 65 20 150/97 H 99 01/07/20 12:15 01/07/20 12:15 01/07/20 12:15 01/07/20 12:15 01/07/20 12:15 - Laboratory Result Diagrams: 01/07/20 15:53 01/07/20 15:53 Laboratory results interpreted by me: 01/07/20 01/07/20 15:53 15:53 RDW 15.2 H Sodium 136.6 L Chloride 108 H Anion Gap 3 L Est GFR (MDRD) Non-Af 57 L - Diagnostic Test Radiology reviewed: Image reviewed, Reports reviewed Discharge - Discharge Clinical Impression: URI (upper respiratory infection) Qualifiers: URI type: unspecified URI Qualified Code(s): J06.9 - Acute upper respiratory infection, unspecified Condition: Stable Disposition: HOME, SELF-CARE Instructions: Upper Respiratory Illness ([facility]) Prescriptions: Tramadol HCl [Ultram] 50 mg PO Q6 PRN 3 Days #12 tablet PRN Reason: Forms: Return to Work Referrals: [facility] [Provider Group] - Follow up in 3-5 days
[2020-01-07 18:36] VITALS: BP 156/80
--- NOTE | 2020-01-08 02:28 | EKG REPORT ---
SEVERITY:- NORMAL ECG - SINUS RHYTHM : Confirmed by: Dahlia Thacker MD 08-Jan-2020 02:26:48
== END 2020-01-07 18:36 | disposition home or self-care (01) ==
LOC: ER 11:29
DX: J06.9 Acute upper respiratory infection, unspecified (principal); J44.9 Chronic obstructive pulmonary disease, unspecified; R06.02 Shortness of breath; R52 Pain, unspecified; R50.9 Fever, unspecified; R05 Cough; F17.200 Nicotine dependence, unspecified, uncomplicated; I10 Essential (primary) hypertension; R53.81 Other malaise; R53.1 Weakness
CPT/HCPCS: 36415; 71045; 80053; 84484; 85025; 93005; 93010; 99284

== ENCOUNTER 2020-01-14 07:52 | Emergency (ER) | payer SELFPAY ==
[2020-01-14 08:07] VITALS: BP 153/104
--- NOTE | 2020-01-14 09:46 | ER Document Report ---
ED General - General Chief Complaint: Cough Stated Complaint: COUGH, CONGESTION, SOB, FEVER Time Seen by Provider: 01/14/20 09:21 Notes: 44-year-old female with past medical history of hypertension presenting today with continued cough going on for longer than a week. States she is coughing up clear phlegm. She states that her cough has been worse in the last week, especially at night. Also woke up this morning with a sore throat and nausea. Is eating and drinking appropriately. She was seen last week and diagnosed with a URI. States she has not been able to seed cone picker the medications prescribed for her last week. She is also not taking any cough medications at home. To get Tylenol at home. She also states that she has left arm numbness and tingling. States is been going on for a period of time. Reports that she is unable to go back to work until she has had the COVID testing. Not have a primary care provider. Has not been on blood pressure medication for over a year. Denies any fevers, chills, shortness of breath, chest pain or additional symptoms at this time. Last menstrual period was last week. TRAVEL OUTSIDE OF THE [place] IN LAST 30 DAYS: No - Related Data Allergies/Adverse Reactions: No Known Allergies Allergy (Verified 01/14/20 07:56) Past Medical History - Social History Smoking Status: Current Every Day Smoker Family History: Reviewed & Not Pertinent, Arthritis, DM, Hyperlipidemia, Hypertension, Malignancy - Past Medical History Cardiac Medical History: Reports: Hx Hypertension Denies: Hx Coronary Artery Disease, Hx Heart Attack Pulmonary Medical History: Reports: Hx Bronchitis - ANNUAL, Hx COPD Denies: Hx Asthma, Hx Pneumonia Neurological Medical History: Denies: Hx Cerebrovascular Accident, Hx Seizures Renal/ Medical History: Reports: Hx Ovarian Cysts. Denies: Hx Peritoneal Dialysis Musculoskeletal Medical History: Denies Hx Arthritis Past Surgical History: Reports: Hx Orthopedic Surgery - Open reduction and internal fixation left wrist fracture - Immunizations Hx Diphtheria, Pertussis, Tetanus Vaccination: Yes Review of Systems - Review of Systems Constitutional: See HPI EENT: See HPI Cardiovascular: No symptoms reported Respiratory: See HPI Gastrointestinal: See HPI Genitourinary: No symptoms reported Female Genitourinary: No symptoms reported Musculoskeletal: No symptoms reported Skin: No symptoms reported Hematologic/Lymphatic: No symptoms reported Neurological/Psychological: See HPI Physical Exam - Vital signs Vitals: Temp Pulse Resp BP Pulse Ox 98.6 F 81 20 153/104 H 99 01/14/20 08:04 01/14/20 08:04 01/14/20 08:04 01/14/20 08:04 01/14/20 08:04 Interpretation: Hypertensive. No: Tachycardic, Hypoxic - Notes Notes: Adult General: GENERAL: Alert, interacts well. No acute distress HEAD: Normocephalic, atraumatic EYES: Extraocular movements intact. ENT: Airway patent. Nares patent. NECK: Full range of motion. Supple. Trachea midline. No lymphadenopathy. LUNGS: Clear to auscultation bilaterally, no wheezes, rales, or rhonchi. No respiratory distress. Nontender chest wall. HEART: Regular rate and rhythm. No murmurs, rubs or gallops. ABDOMEN: Soft, nontender. Nondistended. (-) Grant sign. Bowel sounds present in all 4 quadrants. No rebound, guarding or masses. GENITOURINARY: Deferred EXTREMITIES: Moves all 4 extremities spontaneously. No edema, normal radial and dorsal pedis pulses bilaterally. No cyanosis. BACK: Moves all extremities with full range of motion. NEUROLOGICAL: Alert and oriented x3. Normal speech. Strength 5/ 5 in all extremities. PSYCH: Normal affect, normal mood. SKIN: Warm, dry, normal turgor. No rashes or lesions noted. Course - Re-evaluation Re-evalutation: 01/14/20 11:30 Patient's chest x-ray shows no acute radiographic findings, EKG is sinus rhythm at 62, RI interval of 164 QTC of 485. Troponins negative. She has no elevated white count. Her strep is also negative. Remains afebrile. Additional labs are unremarkable. Her blood pressure is elevated in the emergency department today. Patient reports that she has a history of high blood pressure and she has not taken medications for this. States that her nausea has improved since taking Zofran. Does not have a primary care at this time. I discussed with patient the importance of following up for her elevated blood pressure. I also discussed with her that the results of the COVID will come in a few days and she will hear from the health department in regards to additional instructions. She will need to self isolate until she hears from the health department. Also discussed with patient that she will need to seed cone picker the medications that were prescribed previously for her for her URI symptoms. She also has Robitussin at home. She can take the Robitussin-DM for her cough. Patient acknowledges and verbalizes understanding of instructions and plan. all questions answered. - Vital Signs Vital signs: Temp Pulse Resp BP Pulse Ox 98.6 F 81 20 153/104 H 99 01/14/20 08:04 01/14/20 08:04 01/14/20 08:04 01/14/20 08:04 01/14/20 08:04 - Laboratory Result Diagrams: 01/14/20 10:15 01/14/20 10:15 Laboratory results interpreted by me: 01/14/20 01/14/20 10:15 10:15 RDW 15.7 H Sodium 136.3 L Chloride 109 H Anion Gap 3 L Glucose 127 H - Diagnostic Test Radiology results interpreted by me: 01/14/20 11:33 No acute findings. - EKG Interpretation by Me Additional EKG results interpreted by me: 01/14/20 11:36 Sinus rhythm at 62, RI interval 164, QTC of 485. No ST segment elevations or depressions. Discharge - Discharge Clinical Impression: Person under investigation for COVID-19 URI (upper respiratory infection) Qualifiers: URI type: unspecified viral URI Qualified Code(s): J06.9 - Acute upper respiratory infection, unspecified HTN (hypertension) Qualifiers: Hypertension type: unspecified Qualified Code(s): I10 - Essential (primary) hypertension Condition: Stable Disposition: HOME, SELF-CARE Instructions: COVID-19 Guidance for Persons Under Investigation, High Blood Pressure ([facility]), Upper Respiratory Illness ([facility]) Additional Instructions: At the present investigation for COVID-19, the [place] Department of Health and Human Services (division on public health) advises you to adhere to the following guidance until your test results are reported to you. If your test result is positive, you will receive additional formation from your jose barr in your local health department at that time. Remain at home until you are cleared by the health provider or public health authorities. Keep a log of visitors to your home, notify any visitors to your home of your isolation status. If you plan to move to a new address of the country, notify the local health department in your County. Call your doctor or seek care if you have emergent medical need. Before seeking medical care, call him to get instructions from the provider before arriving at the medical office, clinic, or hospital. Notified them that you are being tested for the virus (COVID-19) so that arrangements can be made, as necessary, to prevent transmission to others in the healthcare setting. Next, notified the local health department in your county. If the medical emergency arises any need to call 911, and from the first responders that you are being tested for the virus that causes COVID-19. Next, notify the local health department and your county. Please follow-up with a primary care provider soon as possible for your blood pressure and to ensure resolution of your respiratory symptoms. Please take Robitussin-DM for your cough and seed cone picker the medication that were prescribed at your last visit. You may return to the emergency department for worsening symptoms or development of new symptoms. Forms: Elevated Blood Pressure
--- NOTE | 2020-01-14 10:23 | RADIOLOGY REPORT (SQ) ---
EXAM DESCRIPTION: CHEST SINGLE VIEW IMAGES COMPLETED DATE/TIME: 01/14/2020 10:04 am REASON FOR STUDY: cough COMPARISON: AP chest 01/07/2020, 05/21/2019 EXAM PARAMETERS: NUMBER OF VIEWS: One view. TECHNIQUE: Single frontal radiographic view of the chest acquired. RADIATION DOSE: NA LIMITATIONS: None. FINDINGS: LUNGS AND PLEURA: No opacities, masses or pneumothorax. No pleural effusion. MEDIASTINUM AND HILAR STRUCTURES: No masses. Contour normal. HEART AND VASCULAR STRUCTURES: Heart normal in size. Normal vasculature. BONES: No acute findings. HARDWARE: None in the chest. OTHER: No other significant finding. IMPRESSION: NO ACUTE RADIOGRAPHIC FINDING IN THE CHEST. TECHNICAL DOCUMENTATION: JOB ID: [id number] 2010 [employer]- All Rights Reserved Reading location - IP/workstation name: [email or web address]
[2020-01-14] MEDS ORDERED: ONDANSETRON 4 MG TAB.RAPDIS PO ONE (10:24)
[2020-01-14 10:57] LABS: ABSOLUTE BASOPHILS # (AUTO) 0.1 10^3/uL (0.0-0.2); ABSOLUTE EOSINOPHILS # (AUTO) 0.2 10^3/uL (0.0-0.6); ABSOLUTE LYMPHOCYTES (AUTO) 1.9 10^3/uL (0.5-4.7); ABSOLUTE MONOCYTES (AUTO) 0.4 10^3/uL (0.1-1.4); ABSOLUTE NEUT (AUTO) 3.5 10^3/uL (1.7-8.2); BASOPHILS % (AUTO) 1.3 % (0-2); EOSINOPHILS % (AUTO) 2.9 % (0-6); HEMATOCRIT 37.8 % (36.0-47.0); HEMOGLOBIN 12.7 g/dL (12.0-15.5); LYMPHOCYTES % (AUTO) 31.4 % (13-45); MEAN CORPUSCULAR HEMOGLOBIN 30.8 pg (27.0-33.4); MEAN CORPUSCULAR HGB CONC 33.7 g/dL (32.0-36.0); MEAN CORPUSCULAR VOLUME 91 fl (80-97); MONOCYTES % (AUTO) 7.3 % (3-13); PLATELET COUNT 268 10^3/uL (150-450); RED BLOOD COUNT 4.14 10^6/uL (3.72-5.28); RED CELL DISTRIBUTION WIDTH 15.7 % (11.5-14.0); SEGMENTED NEUTROPHILS % (AUTO) 57.1 % (42-78); TOTAL CELLS COUNTED % (AUTO) 100 %; WHITE BLOOD COUNT 6.1 10^3/uL (4.0-10.5)
[2020-01-14 11:04] LABS: ALBUMIN 3.6 g/dL (3.5-5.0); ALKALINE PHOSPHATASE 81 U/L (38-126); ASPARTATE AMINO TRANSFERASE 15 U/L (14-36); BILIRUBIN,TOTAL 0.5 mg/dL (0.2-1.3); BLOOD UREA NITROGEN 11 mg/dL (7-20); CALCIUM 8.6 mg/dL (8.4-10.2); CARBON DIOXIDE 24 mmol/L (22-30); CHLORIDE 109 mmol/L (98-107); GLUCOSE 127 mg/dL (75-110); POTASSIUM 3.8 mmol/L (3.6-5.0); TOTAL PROTEIN 6.4 g/dL (6.3-8.2)
[2020-01-14 11:06] LABS: ANION GAP 3 (5-19)
--- NOTE | 2020-01-14 12:07 | EKG REPORT ---
SEVERITY:- BORDERLINE ECG - SINUS RHYTHM LVH BY VOLTAGE : Confirmed by: Thanh Duckworth MD 14-Jan-2020 12:07:11
== END 2020-01-14 11:49 | disposition home or self-care (01) ==
LOC: ER 07:52
DX: J06.9 Acute upper respiratory infection, unspecified (principal); R68.89 Other general symptoms and signs; I10 Essential (primary) hypertension; Z20.828 Contact with and (suspected) exposure to other viral communicable diseases
CPT/HCPCS: 93005; 99284; 36415; 87070; 87880; 85025; 87635; 81025; 80053; 84484; 71045; 93010; S0119; C9803

== ENCOUNTER 2020-02-24 08:16 | Emergency (ER) | payer SELFPAY ==
[2020-02-24] MEDS ORDERED: LISINOPRIL 10 MG TABLET PO ONE (09:23)
[2020-02-24] MEDS ORDERED: FENTANYL CITRATE INJ/PF 100 MCG/2 ML AMPUL IV ONE (09:24)
[2020-02-24 09:59] LABS: ABSOLUTE BASOPHILS # (AUTO) 0.1 10^3/uL (0.0-0.2); ABSOLUTE EOSINOPHILS # (AUTO) 0.3 10^3/uL (0.0-0.6); ABSOLUTE LYMPHOCYTES (AUTO) 2.5 10^3/uL (0.5-4.7); ABSOLUTE MONOCYTES (AUTO) 0.5 10^3/uL (0.1-1.4); ABSOLUTE NEUT (AUTO) 2.7 10^3/uL (1.7-8.2); BASOPHILS % (AUTO) 1.2 % (0-2); EOSINOPHILS % (AUTO) 4.4 % (0-6); HEMATOCRIT 39.6 % (36.0-47.0); HEMOGLOBIN 13.1 g/dL (12.0-15.5); LYMPHOCYTES % (AUTO) 41.9 % (13-45); MEAN CORPUSCULAR HEMOGLOBIN 30.7 pg (27.0-33.4); MEAN CORPUSCULAR HGB CONC 33.2 g/dL (32.0-36.0); MEAN CORPUSCULAR VOLUME 92 fl (80-97); MONOCYTES % (AUTO) 8.3 % (3-13); PLATELET COUNT 249 10^3/uL (150-450); RED BLOOD COUNT 4.28 10^6/uL (3.72-5.28); RED CELL DISTRIBUTION WIDTH 15.5 % (11.5-14.0); SEGMENTED NEUTROPHILS % (AUTO) 44.2 % (42-78); TOTAL CELLS COUNTED % (AUTO) 100 %
[2020-02-24 10:06] LABS: APPEARANCE,URINE CLEAR; BILIRUBIN,URINE NEGATIVE (NEGATIVE); COLOR,URINE YELLOW; GLUCOSE, URINE NEGATIVE (NEGATIVE); KETONES,URINE NEGATIVE (NEGATIVE); LEUKOCYTE ESTERASE,URINE NEGATIVE (NEGATIVE); NITRITE,URINE NEGATIVE (NEGATIVE); PROTEIN,URINE NEGATIVE (NEGATIVE); URINE SPECIFIC GRAVITY 1.021; UROBILINOGEN,URINE NEGATIVE mg/dL (<2.0)
--- NOTE | 2020-02-24 10:15 | ER Document Report ---
ED General - General Chief Complaint: Back Pain Stated Complaint: BACK PAIN Time Seen by Provider: 02/24/20 09:02 Primary Care Provider: [facility] [Provider Group] - Follow up tomorrow [facility] [Provider Group] - Follow up as needed Mode of Arrival: Ambulatory Information source: Patient Notes: Patient presents complaining of left upper back pain that started 5 days ago. Patient states she took Tums 5 days ago and her pain resolved. Patient states pain started up again this morning which brought her in today. Patient states she is had a mild cough at nighttime. Patient denies any shortness of breath, chest pain or abdominal tenderness. TRAVEL OUTSIDE OF THE [place] IN LAST 30 DAYS: No - HPI Onset/Duration: Waxing and waning Quality of pain: Achy Pain Level: 3 Associated symptoms: Nonproductive cough, Other - Left upper back pain. denies: Chest pain, Fever, Nausea, Vomiting, Shortness of breath Exacerbated by: Movement, Deep breathing Relieved by: Denies Similar symptoms previously: Yes Recently seen / treated by doctor: No - Related Data Allergies/Adverse Reactions: No Known Allergies Allergy (Verified 01/14/20 07:56) Past Medical History - General Information source: Patient - Social History Smoking Status: Current Every Day Smoker Frequency of alcohol use: Occasional Drug Abuse: None Occupation: [employer] Family History: Reviewed & Not Pertinent, Arthritis, DM, Hyperlipidemia, Hypertension, Malignancy Patient has homicidal ideation: No - Past Medical History Cardiac Medical History: Reports: Hx Hypertension Pulmonary Medical History: Reports: Hx Bronchitis - ANNUAL, Hx COPD Neurological Medical History: Denies: Hx Cerebrovascular Accident, Hx Seizures Renal/ Medical History: Reports: Hx Ovarian Cysts. Denies: Hx Peritoneal Dialysis Musculoskeletal Medical History: Denies Hx Arthritis Past Surgical History: Reports: Hx Orthopedic Surgery - Open reduction and internal fixation left wrist fracture - Immunizations Hx Diphtheria, Pertussis, Tetanus Vaccination: Yes Review of Systems - Review of Systems Constitutional: No symptoms reported. denies: Fever, Recent illness EENT: No symptoms reported Cardiovascular: No symptoms reported. denies: Chest pain, Lightheaded Respiratory: Cough. denies: Short of breath Gastrointestinal: No symptoms reported. denies: Abdominal pain, Nausea, Vomiting Genitourinary: No symptoms reported Female Genitourinary: No symptoms reported Musculoskeletal: Back pain - Left upper back Skin: No symptoms reported Hematologic/Lymphatic: No symptoms reported Neurological/Psychological: No symptoms reported Physical Exam - Vital signs Vitals: Temp Pulse Resp BP Pulse Ox 98.3 F 65 18 187/100 H 100 02/24/20 08:22 02/24/20 08:22 02/24/20 08:22 02/24/20 08:22 02/24/20 08:22 - General General appearance: Appears well, Alert In distress: None - HEENT Head: Normocephalic, Atraumatic Eyes: Normal Conjunctiva: Normal Nasal: Normal Mouth/Lips: Normal Mucous membranes: Normal Neck: Normal, Supple. No: Lymphadenopathy - Respiratory Respiratory status: No respiratory distress Chest status: Nontender Breath sounds: Normal. No: Nonproductive cough, Rales, Rhonchi, Stridor, Wheezing Chest palpation: Normal. No: Tender - Cardiovascular Rhythm: Regular Heart sounds: S1 appreciated, S2 appreciated - Abdominal Inspection: Normal, Morbidly Obese Distension: No distension Bowel sounds: Normal Tenderness: Nontender Organomegaly: No organomegaly - Back Back: Tender - Left upper thoracic tenderness. No: CVA tenderness - Extremities General upper extremity: Normal inspection, Nontender, Normal strength General lower extremity: Normal inspection, Nontender, Normal strength - Neurological Neuro grossly intact: Yes Cognition: Normal Deonna Coma Scale Eye Opening: Spontaneous Deonna Coma Scale Verbal: Oriented Deonna Coma Scale Motor: Obeys Commands Leicester Coma Scale Total: 15 - Psychological Associated symptoms: Normal affect, Normal mood - Skin Skin Temperature: Warm Skin Moisture: Dry Skin Color: Normal Course - Re-evaluation Re-evalutation: 02/24/20 11:[address] Killian regarding patient presentation and diagnostic evaluation. Agrees with evaluation and advises treating her hypertension with her medication she been previously prescribed. 02/24/20 12:01 Patient's pain symptoms have resolved. Presentation of upper back pain in an otherwise well appearing patient. Low clinical suspicion for ACS given clinical history, exam, EKG without ST elevations or depressions, and negative initial troponin. HEART score less than or equal to 3. PE also seems unlikely given clinical history, absence of tachycardia or dyspnea. CXR without evidence of pneumothorax or pneumonia. No widened mediastinum. Upper back pain in a patient without evidence of cardiac or other serious e tiology on workup today. Suspect likely musculoskeletal pain source of patient's symptoms. - Vital Signs Vital signs: Temp Pulse Resp BP Pulse Ox 98.5 F 65 20 179/99 H 99 02/24/20 12:15 02/24/20 08:22 02/24/20 12:02 02/24/20 12:02 02/24/20 12:02 - Laboratory Result Diagrams: 02/24/20 09:40 02/24/20 09:40 Laboratory results interpreted by me: 02/24/20 02/24/20 09:40 09:40 RDW 15.5 H Chloride 108 H 02/24/20 12:02 Labs- All tests 24 hr 02/24/20 02/24/20 02/24/20 09:35 09:40 09:40 WBC 6.0 RBC 4.28 Hgb 13.1 Hct 39.6 MCV 92 MCH 30.7 MCHC 33.2 RDW 15.5 H Plt Count 249 Lymph % (Auto) 41.9 Ulster % (Auto) 8.3 Eos % (Auto) 4.4 Baso % (Auto) 1.2 Absolute Neuts (auto) 2.7 Absolute Lymphs (auto) 2.5 Absolute Monos (auto) 0.5 Absolute Eos (auto) 0.3 Absolute Basos (auto) 0.1 Seg Neutrophils % 44.2 D-Dimer 0.29 Sodium Potassium Chloride Carbon Dioxide Anion Gap BUN Creatinine Est GFR ( Amer) Est GFR (MDRD) Non-Af Glucose Calcium Total Bilirubin Direct Bilirubin Neonat Total Bilirubin Neonat Direct Bilirubin Neonat Indirect Bili AST ALT Alkaline Phosphatase Troponin I Total Protein Albumin Serum HCG, Qual Urine Color YELLOW Urine Appearance CLEAR Urine pH 6.0 Ur Specific Hulett 1.021 Urine Protein NEGATIVE Urine Glucose (UA) NEGATIVE Urine Ketones NEGATIVE Urine Blood NEGATIVE Urine Nitrite NEGATIVE Urine Bilirubin NEGATIVE Urine Urobilinogen NEGATIVE Ur Leukocyte Esterase NEGATIVE Urine WBC (Auto) 3 Urine RBC (Auto) 2 Squamous Epi Cells Auto 2 Urine Mucus (Auto) OCC Urine Ascorbic Acid NEGATIVE 02/24/20 02/24/20 02/24/20 09:40 09:40 09:40 WBC RBC Hgb Hct MCV MCH MCHC RDW Plt Count Lymph % (Auto) Ulster % (Auto) Eos % (Auto) Baso % (Auto) Absolute Neuts (auto) Absolute Lymphs (auto) Absolute Monos (auto) Absolute Eos (auto) Absolute Basos (auto) Seg Neutrophils % D-Dimer Sodium 137.5 Potassium 4.4 Chloride 108 H Carbon Dioxide 24 Anion Gap 6 BUN 11 Creatinine 0.94 Est GFR ( Amer) > 60 Est GFR (MDRD) Non-Af > 60 Glucose 103 Calcium 9.1 Total Bilirubin 0.7 Direct Bilirubin 0.0 Neonat Total Bilirubin Not Reportable Neonat Direct Bilirubin Not Reportable Neonat Indirect Bili Not Reportable AST 24 ALT 17 Alkaline Phosphatase 84 Troponin I < 0.012 Total Protein 7.8 Albumin 4.1 Serum HCG, Qual NEGATIVE Urine Color Urine Appearance Urine pH Ur Specific Hulett Urine Protein Urine Glucose (UA) Urine Ketones Urine Blood Urine Nitrite Urine Bilirubin Urine Urobilinogen Ur Leukocyte Esterase Urine WBC (Auto) Urine RBC (Auto) Squamous Epi Cells Auto Urine Mucus (Auto) Urine Ascorbic Acid - Diagnostic Test Radiology reviewed: Reports reviewed - EKG Interpretation by Me Rate: Normal Rhythm: NSR When compared to previous EKG there are: No significant change Additional EKG results interpreted by me: 02/24/20 10:13 Sinus rhythm with a rate of 60, QTc 480, no acute ischemic changes, no significant change when compared to previous EKG Discharge - Discharge Clinical Impression: Upper back pain on left side Hypertension Qualifiers: Hypertension type: unspecified Qualified Code(s): I10 - Essential (primary) hypertension Condition: Stable Disposition: HOME, SELF-CARE Instructions: High Blood Pressure, Requiring Treatment ([facility]), Ice Packs ([facility]), Muscle Strain ([facility]), Upper Back Strain ([facility]), Warm Packs ([facility]) Additional Instructions: Return immediately for any new or worsening symptoms Followup with your primary care provider, call tomorrow to make a followup ap pointment Prescriptions: Lidocaine [Lidoderm 5% (700 mg) Transdermal Patch] 1 patch TP DAILY PRN #10 adh..patch PRN Reason: Lisinopril/Hydrochlorothiazide [Lisinopril-Hctz 10-12.5 mg Tab] 1 each PO DAILY #30 tablet Methocarbamol [Robaxin 500 Mg Tablet] 500 mg PO QID PRN #40 tablet PRN Reason: Forms: Return to Work Referrals: [facility] [Provider Group] - Follow up as needed [facility] [Provider Group] - Follow up tomorrow
[2020-02-24 10:28] LABS: ALBUMIN 4.1 g/dL (3.5-5.0); ALKALINE PHOSPHATASE 84 U/L (38-126); ANION GAP 6 (5-19); ASPARTATE AMINO TRANSFERASE 24 U/L (14-36); BILIRUBIN,TOTAL 0.7 mg/dL (0.2-1.3); BLOOD UREA NITROGEN 11 mg/dL (7-20); CALCIUM 9.1 mg/dL (8.4-10.2); CARBON DIOXIDE 24 mmol/L (22-30); CHLORIDE 108 mmol/L (98-107); GLUCOSE 103 mg/dL (75-110); POTASSIUM 4.4 mmol/L (3.6-5.0); TOTAL PROTEIN 7.8 g/dL (6.3-8.2)
--- NOTE | 2020-02-24 10:47 | RADIOLOGY REPORT (SQ) ---
EXAM DESCRIPTION: CHEST SINGLE VIEW IMAGES COMPLETED DATE/TIME: 02/24/2020 10:40 am REASON FOR STUDY: pain with deep breathing on left side x 2 days COMPARISON: 01/14/2020 EXAM PARAMETERS: NUMBER OF VIEWS: One view. TECHNIQUE: Single frontal radiographic view of the chest acquired. RADIATION DOSE: NA LIMITATIONS: None. FINDINGS: LUNGS AND PLEURA: No opacities, masses or pneumothorax. No pleural effusion. MEDIASTINUM AND HILAR STRUCTURES: No masses. Contour normal. HEART AND VASCULAR STRUCTURES: Heart normal in size. Normal vasculature. BONES: No acute findings. HARDWARE: None in the chest. OTHER: No other significant finding. IMPRESSION: NO ACUTE RADIOGRAPHIC FINDING IN THE CHEST. TECHNICAL DOCUMENTATION: JOB ID: [id number] 2010 [employer]- All Rights Reserved Reading location - IP/workstation name: [email or web address]
[2020-02-24 12:12] VITALS: BP 179/99
--- NOTE | 2020-02-24 21:32 | EKG REPORT ---
SEVERITY:- NORMAL ECG - SINUS RHYTHM : Confirmed by: Maryam Hendrix 24-Feb-2020 21:31:41
== END 2020-02-24 12:15 | disposition home or self-care (01) ==
LOC: ER 08:16
DX: M54.9 Dorsalgia, unspecified (principal); I10 Essential (primary) hypertension; R05 Cough; F17.200 Nicotine dependence, unspecified, uncomplicated
CPT/HCPCS: 93005; 99285; 96374; 36415; 84703; 85025; 80053; 81001; 84484; 85379; 71045; 93010; J3010

== ENCOUNTER 2020-03-09 08:14 | Emergency (ER) | payer SELFPAY ==
[2020-03-09 08:19] VITALS: BP 155/95
[2020-03-09] MEDS ORDERED: DIPH/PERTUSS(ACELL)/TETANUS VAC/PF 0.5 ML SYR (>=10YO) IM ONE (11:31)
[2020-03-09] MEDS ORDERED: ACETAMINOPHEN 325 MG TABLET PO ONE (11:32)
[2020-03-09] MEDS ORDERED: CEPHALEXIN 500 MG CAPSULE PO ONE (11:32)
--- NOTE | 2020-03-09 11:34 | ER Document Report ---
HPI - HPI Patient complains to provider of: Hand laceration Time Seen by Provider: 03/09/20 11:24 Onset: Yesterday Onset/Duration: Sudden Quality of pain: Achy Pain Level: 5 Context: Patient states that she grabbed a doorknob that had a knife wedged in it. Patient reports puncture wound to the left hand. Patient states area has continued to bleed off and on since initial injury. Patient denies any fever. Patient denies any loss of mobility or sensation. Associated Symptoms: Other - Wound to left hand Exacerbated by: Movement Relieved by: Denies Similar symptoms previously: No Recently seen / treated by doctor: No - ROS ROS below otherwise negative: Yes Systems Reviewed and Negative: Yes All other systems reviewed and negative - CONSTITUTIONAL Constitutional: DENIES: Fever, Chills - NEURO Neurology: DENIES: Weakness - MUSCULOSKELETAL Musculoskeletal: REPORTS: Extremity pain - DERM Skin Problems: Laceration, Puncture Wound Past Medical History - General Information source: Patient - Social History Smoking Status: Current Every Day Smoker Frequency of alcohol use: None Drug Abuse: None Lives with: Family Family History: Reviewed & Not Pertinent, Arthritis, DM, Hyperlipidemia, Hypertension, Malignancy - Past Medical History Cardiac Medical History: Reports: Hx Hypertension Pulmonary Medical History: Reports: Hx Bronchitis - ANNUAL, Hx COPD Denies: Hx Asthma, Hx Pneumonia Neurological Medical History: Denies: Hx Cerebrovascular Accident, Hx Seizures Renal/ Medical History: Reports: Hx Ovarian Cysts. Denies: Hx Peritoneal Dialysis Musculoskeletal Medical History: Denies Hx Arthritis Past Surgical History: Reports: Hx Orthopedic Surgery - Open reduction and internal fixation left wrist fracture - Immunizations Hx Diphtheria, Pertussis, Tetanus Vaccination: Yes Vertical Provider Document - CONSTITUTIONAL Agree With Documented VS: Yes Exam Limitations: No Limitations General Appearance: WD/WN, No Apparent Distress - INFECTION CONTROL TRAVEL OUTSIDE OF THE [place] IN LAST 30 DAYS: No - HEENT HEENT: Atraumatic, Normocephalic - NECK Neck: Normal Inspection - RESPIRATORY Respiratory: No Respiratory Distress - CARDIOVASCULAR Pulses: Normal: Radial - MUSCULOSKELETAL/EXTREMETIES Musculoskeletal/Extremeties: MAEW, FROM, Tender - Left second metacarpal tenderness 1+ edema - NEURO Level of Consciousness: Awake, Alert, Appropriate Motor/Sensory: No Motor Deficit, No Sensory Deficit - DERM Integumentary: Warm, Dry, Laceration - 0.5 cm laceration to the radial aspect of the left second metacarpal, no active bleeding at this time Course - Re-evaluation Re-evalutation: 03/09/20 11:33 Patient with puncture wound laceration to left hand, wound occurred yesterday. Will cover with antibiotics given minimal swelling to the area. No concern for septic arthritis at this time. Will close with Steri-Strips and advise of worsening signs or symptoms of patient to return immediately for. - Vital Signs Vital signs: Temp Pulse Resp BP Pulse Ox 98.2 F 72 18 155/95 H 96 03/09/20 08:18 03/09/20 08:18 03/09/20 08:18 03/09/20 08:18 03/09/20 08:18 Procedures - Laceration/Wound Repair Left Hand Wound length (cm): 0.5 Wound's Depth, Shape: Linear Laceration pre-procedure: Shur-Clens applied Wound explored: Clean Wound Repaired With: Steri-strips Post-procedure wound care: Sterile dressing applied Post-procedure NV exam normal: Yes Complications: No Hands back picture: 1 - lac Discharge - Discharge Clinical Impression: Puncture wound Hand laceration Qualifiers: Encounter type: initial encounter Foreign body presence: without foreign body Laterality: left Qualified Code(s): S61.412A - Laceration without foreign body of left hand, initial encounter Condition: Stable Disposition: HOME, SELF-CARE Instructions: Prophylactic Antibiotic ([facility]), Care of Steri-Strip Closure ([facility]), Tetanus Immunization Given ([facility]) Additional Instructions: Return immediately for any new or worsening symptoms Followup with your primary care provider, call tomorrow to make a followup appointment Monitor for any signs of infection such as redness, streaks, purulent drainage or fever. Follow-up with orthopedics for any worsening signs or symptoms. Prescriptions: Cephalexin Monohydrate [Keflex 500 mg Capsule] 500 mg PO Q6H 5 Days #20 capsule Forms: Return to Work Referrals: SUE KIRKPATRICK DO [ACTIVE STAFF] - Follow up as needed
== END 2020-03-09 12:10 | disposition home or self-care (01) ==
LOC: ER 08:14
DX: S61.412A Laceration without foreign body of left hand, initial encounter (principal); W26.0XXA Contact with knife, initial encounter; F17.200 Nicotine dependence, unspecified, uncomplicated; I10 Essential (primary) hypertension; Z23 Encounter for immunization
CPT/HCPCS: 90471; 90715; 99283

== ENCOUNTER 2020-04-07 10:46 | Emergency (ER) | payer SELFPAY ==
[2020-04-07] MEDS ORDERED: ACETAMINOPHEN 325 MG TABLET PO ONE (12:17)
[2020-04-07] MEDS ORDERED: LISINOPRIL 10 MG TABLET PO ONE (12:17)
--- NOTE | 2020-04-07 12:19 | ER Document Report ---
ED Flu Like - General Chief Complaint: Flu Symptoms Stated Complaint: FEVER,SORE THROAT,HEADACHE Time Seen by Provider: 04/07/20 11:31 Primary Care Provider: MIGUEL VILLEGAS DO [NO LOCAL MD] - Follow up as needed Mode of Arrival: Ambulatory Information source: Patient Notes: 44-year-old female past medical history significant for hypertension not currently taking her medications presents to the emergency room complaining of subjective fever, sore throat, sinus congestion that started yesterday. States she has been taking ibuprofen and Benadryl with minimal relief. She denies any recent travel. She denies any COVID-19 exposure. Negative COVID testing approximately 1 month ago. No known ill contacts. Eating and drinking normally. No other known ill contacts. TRAVEL OUTSIDE OF THE [place] IN LAST 30 DAYS: No - Related Data Allergies/Adverse Reactions: No Known Allergies Allergy (Verified 04/07/20 11:39) Past Medical History - General Information source: Patient - Social History Smoking Status: Current Every Day Smoker Frequency of alcohol use: Occasional Drug Abuse: None Family History: Reviewed & Not Pertinent, Arthritis, DM, Hyperlipidemia, Hypertension, Malignancy Patient has homicidal ideation: No - Past Medical History Cardiac Medical History: Reports: Hx Hypertension Denies: Hx Coronary Artery Disease, Hx Heart Attack Pulmonary Medical History: Reports: Hx Bronchitis - ANNUAL, Hx COPD Denies: Hx Asthma, Hx Pneumonia Neurological Medical History: Denies: Hx Cerebrovascular Accident, Hx Seizures Renal/ Medical History: Reports: Hx Ovarian Cysts. Denies: Hx Peritoneal Dialysis Musculoskeletal Medical History: Denies Hx Arthritis Past Surgical History: Reports: Hx Orthopedic Surgery - Open reduction and internal fixation left wrist fracture - Immunizations Hx Diphtheria, Pertussis, Tetanus Vaccination: Yes Review of Systems - Review of Systems Constitutional: Fever EENT: Sinus pressure, Throat pain Cardiovascular: No symptoms reported Respiratory: No symptoms reported Musculoskeletal: No symptoms reported Skin: No symptoms reported Neurological/Psychological: No symptoms reported -: Yes All other systems reviewed and negative Physical Exam - Vital signs Vitals: Temp Pulse Resp BP Pulse Ox 99.0 F 80 20 190/110 H 100 04/07/20 11:26 04/07/20 11:26 04/07/20 11:26 04/07/20 11:04/07/20 11:26 - General General appearance: Appears well, Alert In distress: Mild - HEENT Head: Normocephalic, Atraumatic Eyes: Normal Pupils: PERRL Ears: Normal Tympanic membrane: Normal Sinus: Normal Nasal: Normal Mucous membranes: Normal Pharynx: Normal Neck: Normal. No: Lymphadenopathy, Meningismus, Thyromegally - Respiratory Respiratory status: No respiratory distress Chest status: Nontender Breath sounds: Normal Chest palpation: Normal - Cardiovascular Rhythm: Regular Heart sounds: Normal auscultation Murmur: No - Neurological Neuro grossly intact: Yes Cognition: Normal Orientation: AAOx4 Percy Coma Scale Eye Opening: Spontaneous Deonna Coma Scale Verbal: Oriented Deonna Coma Scale Motor: Obeys Commands Percy Coma Scale Total: 15 Speech: Normal Motor strength normal: LUE, RUE, LLE, RLE Sensory: Normal - Skin Skin Temperature: Warm Skin Moisture: Dry Skin Color: Normal Course - Re-evaluation Re-evalutation: 04/07/20 14:06 Patient is resting comfortably she is afebrile, she is nontoxic-appearing, she is able to tolerate p.o. fluids. Reviewed negative flu results with patient. Had long discussion with patient about the need to take her blood pressure medications as prescribed. Patient states she has been unable to get her prescription filled. She also does not have a primary care physician to follow- up with. Patient with persistent hypertension, asymptomatic at this time. Denies chest pain, shortness of breath, no difficulty breathing. Patient was told that I would send her a prescription for lisinopril to [facility] which she can get for free. Also will be given a prescription for amoxicillin for her right ear infection which she also can get a [facility] for free. She was counseled importance of following up patient with a primary care physician, on-call physician as well as free clinic information was provided to the patient, for your uncontrolled hypertension. Patient was given strict return to the emergency room guidelines. Return for any new or worsening symptoms. All questions were answered. Patient verbalized understanding and agrees with plan of care. 04/07/20 19:15 - Vital Signs Vital signs: Temp Pulse Resp BP Pulse Ox 98.5 F 80 18 160/110 H 100 04/07/20 14:50 04/07/20 14:50 04/07/20 14:50 04/07/20 14:50 04/07/20 14:50 Discharge - Discharge Clinical Impression: Body aches Right otitis media Qualifiers: Otitis media type: unspecified Qualified Code(s): H66.91 - Otitis media, unspecified, right ear Hypertension Qualifiers: Hypertension type: unspecified Qualified Code(s): I10 - Essential (primary) hypertension Condition: Stable Disposition: HOME, SELF-CARE Instructions: High Blood Pressure, Requiring Treatment ([facility]), Otitis Media ([facility]) Additional Instructions: Continue with Tylenol and or Motrin as needed for headache and fevers. Take the amoxicillin as prescribed for ear infection. Take your lisinopril as prescribed for your hypertension. It is imperative that you follow-up outpatient with a primary care physician for management of your hypertension. Return to the emergency room for any new or worsening symptoms. Prescriptions: Amoxicillin 1 tab PO TID #30 tab Lisinopril [Prinivil] 10 mg PO DAILY #30 tablet Forms: Return to Work Referrals: MIGUEL VILLEGAS DO [NO LOCAL MD] - Follow up as needed
[2020-04-07 14:01] LABS: A TYPE INFLUENZA AG NEGATIVE (NEGATIVE); B INFLUENZA AG NEGATIVE (NEGATIVE)
[2020-04-07 14:50] VITALS: BP 160/110
== END 2020-04-07 14:51 | disposition home or self-care (01) ==
LOC: ER 10:46
DX: H66.91 Otitis media, unspecified, right ear (principal); J02.9 Acute pharyngitis, unspecified; R51 Headache; I10 Essential (primary) hypertension; R50.9 Fever, unspecified; M79.10 Myalgia, unspecified site; F17.200 Nicotine dependence, unspecified, uncomplicated
CPT/HCPCS: 87804; 99283

== ENCOUNTER 2020-04-10 14:43 | Emergency (ER) | payer SELFPAY ==
--- NOTE | 2020-04-10 17:33 | ER Document Report ---
ED Medical Screen (RME) - General Chief Complaint: Fever Stated Complaint: FEVER,LOSS OF TASTE Time Seen by Provider: 04/10/20 15:42 Mode of Arrival: Ambulatory Information source: Patient Notes: 44-year-old female presented to ED for complaint of headache no taste was seen here recently has since then developed a head headache no tasted fever. She states her cousin was positive for the COVID. She states she does smoke 1/2 pack a day drinks daily 1 beer does not use any illicit drugs. She does have a medical history of high blood pressure. Will order blood urine and cover with test. I have greeted and performed a rapid initial assessment of this patient. A comprehensive ED assessment and evaluation of the patient, analysis of test results and completion of medical decision making process will be conducted by an additional ED providers. TRAVEL OUTSIDE OF THE [place] IN LAST 30 DAYS: No - Related Data Allergies/Adverse Reactions: No Known Allergies Allergy (Verified 04/07/20 11:39) Past Medical History - Past Medical History Cardiac Medical History: Reports: Hx Hypertension Denies: Hx Coronary Artery Disease, Hx Heart Attack Pulmonary Medical History: Reports: Hx Bronchitis - ANNUAL, Hx COPD Denies: Hx Asthma, Hx Pneumonia Neurological Medical History: Denies: Hx Cerebrovascular Accident, Hx Seizures Renal/ Medical History: Reports: Hx Ovarian Cysts. Denies: Hx Peritoneal Dialysis Musculoskeltal Medical History: Denies Hx Arthritis Past Surgical History: Reports: Hx Orthopedic Surgery - Open reduction and internal fixation left wrist fracture - Immunizations Hx Diphtheria, Pertussis, Tetanus Vaccination: Yes Physical Exam - Vital signs Vitals: Temp Pulse Resp BP Pulse Ox 98.6 F 88 16 147/93 H 100 04/10/20 15:50 04/10/20 15:50 04/10/20 15:50 04/10/20 15:50 04/10/20 15:50 Course - Vital Signs Vital signs: Temp Pulse Resp BP Pulse Ox 98.6 F 88 16 147/93 H 100 04/10/20 15:50 04/10/20 15:50 04/10/20 15:50 04/10/20 15:50 04/10/20 15:50
--- NOTE | 2020-04-10 18:21 | ER Document Report ---
ED Fever - General Chief Complaint: Fever Stated Complaint: FEVER,LOSS OF TASTE Time Seen by Provider: 04/10/20 15:42 Mode of Arrival: Ambulatory Notes: CHIEF COMPLAINT: Loss of taste, body ache HPI: 44-year-old female presenting to the emergency department complaining of body ache over the last for 5 days. Lost taste last night. Lost smell last night. Patient had a cousin who tested positive yesterday for COVID. Patient states that she was in the emergency department several days ago with flulike symptoms and had a negative flu test but did not have a COVID test. Patient does report some general frontal headaches no neck pain ROS: See HPI - all other systems were reviewed and are otherwise negative Constitutional: no fever Eyes: no drainage, no blurred vision ENT: Positive runny nose, no sore throat Cardiovascular: no chest pain Resp: no SOB, no cough GI: no vomiting, no diarrhea, no abdominal pain : no dysuria Integumentary: no rash Allergy: no hives Musculoskeletal: no extremity pain or swelling, positive myalgia Neurological: no numbness/tingling, no weakness MEDICATIONS: I agree with the patient medications as charted by the RN. ALLERGIES: I agree with the allergies as charted by the RN. PAST MEDICAL HISTORY/PAST SURGICAL HISTORY: Reviewed and agree as charted by RN. SOCIAL HISTORY: Reviewed and agree as charted by RN. FAMILY HISTORY: No significant familial comorbid conditions directly related to patient complaint EXAM: Reviewed vital signs as charted by RN. CONSTITUTIONAL: Alert and oriented and responds appropriately to questions. Well-appearing; well-nourished HEAD: Normocephalic; atraumatic EYES: PERRL; Conjunctivae clear, sclerae non-icteric ENT: normal nose; positive clear rhinorrhea; moist mucous membranes; pharynx without lesions noted, no uvula edema or deviation, no tonsillar hypertrophy, phonation normal NECK: Supple without meningismus; non-tender; no cervical lymphadenopathy, no masses CARD: RRR; no murmurs, no clicks, no rubs, no gallops; symmetric distal pulses RESP: Normal chest excursion without splinting or tachypnea; breath sounds clear and equal bilaterally; no wheezes, no rhonchi, no rales, pulse oximetry ABD/GI: Normal bowel sounds; non-distended; soft, non-tender, no rebound, no guarding; no palpable organomegaly or masses. BACK: The back appears normal and is non-tender to palpation, there is no CVA tenderness EXT: Normal ROM in all joints; non-tender to palpation; no cyanosis, no effusions, no edema SKIN: Normal color for age and race; warm; dry; good turgor; no acute lesions noted NEURO: Moves all extremities equally; Motor and sensory function intact PSYCH: The patient's mood and manner are appropriate. Grooming and personal hygiene are appropriate. MDM: 44-year-old female presenting with COVID symptoms. Will obtain COVID test. She has no cough or sore throat to suggest need for chest x-ray or strep test. Had a flu test several days ago that was negative. Denies dysuria. Had a cousin who tested positive yesterday. Patient will be a person under investigation for COVID-19 pending results TRAVEL OUTSIDE OF THE [place] IN LAST 30 DAYS: No - Related Data Allergies/Adverse Reactions: No Known Allergies Allergy (Verified 04/07/20 11:39) Past Medical History - General Information source: Patient - Social History Smoking Status: Unknown if Ever Smoked Family History: Reviewed & Not Pertinent, Arthritis, DM, Hyperlipidemia, Hypertension, Malignancy - Past Medical History Cardiac Medical History: Reports: Hx Hypertension Denies: Hx Coronary Artery Disease, Hx Heart Attack Pulmonary Medical History: Reports: Hx Bronchitis - ANNUAL, Hx COPD Denies: Hx Asthma, Hx Pneumonia Neurological Medical History: Denies: Hx Cerebrovascular Accident, Hx Seizures Renal/ Medical History: Reports: Hx Ovarian Cysts. Denies: Hx Peritoneal Dialysis Musculoskeletal Medical History: Denies Hx Arthritis Past Surgical History: Reports: Hx Orthopedic Surgery - Open reduction and internal fixation left wrist fracture - Immunizations Hx Diphtheria, Pertussis, Tetanus Vaccination: Yes Physical Exam - Vital signs Vitals: Temp Pulse Resp BP Pulse Ox 98.6 F 88 16 147/93 H 100 04/10/20 15:50 04/10/20 15:50 04/10/20 15:50 04/10/20 15:50 04/10/20 15:50 Course - Vital Signs Vital signs: Temp Pulse Resp BP Pulse Ox 98.6 F 88 16 147/93 H 100 04/10/20 15:50 04/10/20 15:50 04/10/20 15:50 04/10/20 15:50 04/10/20 15:50 Discharge - Discharge Clinical Impression: Person under investigation for COVID-19 Condition: Stable Disposition: HOME, SELF-CARE Instructions: COVID-19 Guidance for Persons Under Investigation Additional Instructions: Motrin Tylenol for body ache, hydrate well at home, you are considered a person under investigation for COVID-19 at this time, self quarantine at home pending her test results which may take 2 to 5 days. You will be notified by someone from the hospital about your results. Return for any concerns or worsening condition Forms: Return to Work Referrals: AIDAN LAWSON MD [ACTIVE STAFF] - Follow up as needed
[2020-04-10 18:43] VITALS: BP 148/99
== END 2020-04-10 18:47 | disposition home or self-care (01) ==
LOC: ER 14:43
DX: U07.1 COVID-19 (principal); R50.9 Fever, unspecified; M79.10 Myalgia, unspecified site; R43.8 Other disturbances of smell and taste; R51.9 Headache, unspecified; I10 Essential (primary) hypertension
CPT/HCPCS: 99283; 87635; C9803